=== PATIENT | female | born 1985 | race Caucasian/White ===

== ENCOUNTER 2016-04-07 19:33 | Emergency (ER) | payer OTHER ==
[~2016-04-07] VITALS: Ht 165.1 cm; Wt 72.6 kg
[~2016-04-07 19:33] MED LIST: HYDR-971 PO; NAPR500T PO; NAPR550T PO
[2016-04-07] MEDS ORDERED: METOCLOPRAMIDE HCL 10 MG/2 ML VIAL. IV ONE (20:00)
[2016-04-07] MEDS ORDERED: IV NORMAL SALINE 1000ML BAG 1,000 ML IV ONE (20:00)
[2016-04-07] MEDS ORDERED: DIPHENHYDRAMINE 50 MG/ML VIAL IVP ONE (20:00)
[2016-04-07] MEDS ORDERED: KETOROLAC TROMETHAMINE 30 MG/ML SYRINGE. IV ONE (20:00)
[2016-04-07 20:13] LABS: BASO # 0.1 x10^3/uL (0.0-0.2); BASO % 1 % (0-3); EOS % 5 % (0-3); HEMATOCRIT 31.4 % (36.0-47.0); HEMOGLOBIN 10.3 g/dL (12.0-15.5); LYMPH # 2.8 x10^3/uL (1.0-4.8); LYMPH % 50 % (24-48); MEAN CORPUSCULAR HEMOGLOBIN 26 pg (25-35); MEAN CORPUSCULAR HGB CONC 33 g/dL (31-37); MEAN CORPUSCULAR VOLUME 79 fL (79-100); MONO % 6 % (0-9); NEUT % 39 % (31-73); PLATELET COUNT 209 x10^3/uL (140-400); RED BLOOD COUNT 3.98 x10^6/uL (3.50-5.40); RED CELL DISTRIBUTION WIDTH 15.3 % (11.5-14.5); WHITE BLOOD COUNT 5.6 x10^3/uL (4.0-11.0)
[2016-04-07] MEDS ORDERED: METO10TA81 PO (20:29)
[2016-04-07] MEDS ORDERED: BUTA1CAP29 PO (20:29)
--- NOTE | 2016-04-07 20:29 | PHYS DOC ---
Past Medical History Past Medical History: Bipolar Past Surgical History: , Gastric Bypass, Tonsillectomy Alcohol Use: None Drug Use: None Adult General Chief Complaint Chief Complaint: MULTIPLE COMPLAINTS HPI HPI 31-year-old female presents with multiple complaints. She states she has had [id number] heavy periods with a history of anemia and is concerned about her blood count. She also states she is had a severe headache typical of her previous migraine headaches. She denies any lateralizing neurologic weakness. She denies any fever or neck pain. She states is been ongoing for the last 12 hours. [] Review of Systems Review of Systems Constitutional: Denies fever or chills [] Eyes: Denies change in visual acuity, redness, or eye pain [] HENT: Denies nasal congestion or sore throat [] Respiratory: Denies cough or shortness of breath [] Cardiovascular: No additional information not addressed in HPI [] GI: Denies abdominal pain, nausea, vomiting, bloody stools or diarrhea [] : Denies dysuria or hematuria [] Musculoskeletal: Denies back pain or joint pain [] Integument: Denies rash or skin lesions [] Neurologic: Per history of present illness [] Endocrine: Denies polyuria or polydipsia [] Current Medications Current Medications Current Medications Medications (Trade) Dose Ordered Sig/Yaniv Start Time Stop Time Status Last Admin Dose Admin Diphenhydramine HCl (Benadryl) 25 mg 1X ONCE 04/07/16 20:00 04/07/16 20:01 DC 04/07/16 20:10 25 MG Ketorolac Tromethamine (Toradol) 30 mg 1X ONCE 04/07/16 20:00 04/07/16 20:01 DC 04/07/16 20:10 30 MG Metoclopramide HCl (Reglan) 10 mg 1X ONCE 04/07/16 20:00 04/07/16 20:01 DC 04/07/16 20:11 10 MG Sodium Chloride (Iv Sodium Chloride 0.9% 1000ml Bag) 1,000 ml @ 1,000 mls/hr 1X ONCE 04/07/16 20:00 04/07/16 20:59 04/07/16 20:09 1,000 MLS/HR Allergies Allergies Allergies Coded Allergies Type Severity Reaction Last Updated Verified No Known Drug Allergies 01/23/16 No Physical Exam Physical Exam Constitutional: Well developed, well nourished, no acute distress, non-toxic appearance. [] HENT: Normocephalic, atraumatic, bilateral external ears normal, oropharynx moist, no oral exudates, nose normal. [] Eyes: PERRLA, EOMI, conjunctiva normal, no discharge. [] Neck: Normal range of motion, no tenderness, supple, no stridor. [] Cardiovascular:Heart rate regular rhythm, no murmur [] Lungs & Thorax: Bilateral breath sounds clear to auscultation [] Abdomen: Bowel sounds normal, soft, no tenderness, no masses, no pulsatile masses. [] Skin: Warm, dry, no erythema, no rash. [] Back: No tenderness, no CVA tenderness. [] Extremities: No tenderness, no cyanosis, no clubbing, ROM intact, no edema. [] Neurologic: Alert and oriented X 3, normal motor function, normal sensory function, no focal deficits noted. [] Psychologic: Affect normal, judgement normal, mood normal. [] Current Patient Data Lab Values Laboratory Tests Test 04/07/16 20:00 White Blood Count 5.6x10^3/uL (4.0-11.0) Red Blood Count 3.98x10^6/uL (3.50-5.40) Hemoglobin 10.3g/dL (12.0-15.5) L Hematocrit 31.4% (36.0-47.0) L Mean Corpuscular Volume 79fL (79-100) Mean Corpuscular Hemoglobin 26pg (25-35) Mean Corpuscular Hemoglobin Concent 33g/dL (31-37) Red Cell Distribution Width 15.3% (11.5-14.5) H Platelet Count 209x10^3/uL (140-400) Neutrophils (%) (Auto) 39% (31-73) Lymphocytes (%) (Auto) 50% (24-48) H Monocytes (%) (Auto) 6% (0-9) Eosinophils (%) (Auto) 5% (0-3) H Basophils (%) (Auto) 1% (0-3) Neutrophils # (Auto) 2.2x10^3uL (1.8-7.7) Lymphocytes # (Auto) 2.8x10^3/uL (1.0-4.8) Monocytes # (Auto) 0.3x10^3/uL (0.0-1.1) Eosinophils # (Auto) 0.3x10^3/uL (0.0-0.7) Basophils # (Auto) 0.1x10^3/uL (0.0-0.2) Laboratory Tests 04/07/16 20:00 EKG EKG [] Radiology/Procedures Radiology/Procedures [] Course & Med Decision Making Course & Med Decision Making Pertinent Labs and Imaging studies reviewed. (See chart for details) [ED course: Evaluation reveals a 31-year-old female with migraine type symptoms. She was given IV fluids, Reglan, Toradol and Benadryl with complete resolution of her headache. Her blood count was slightly low at 10 and 30 however not dangerously low. Patient states she feels better. Home.] Dragon Disclaimer Dragon Disclaimer This electronic medical record was generated, in whole or in part, using a voice recognition dictation system. Departure Departure Impression: Primary Impression: Migraine Additional Impression: Dysfunctional uterine bleeding Disposition: HOME, SELF-CARE Condition: STABLE Referrals: EDITH MARLOW MD (PCP) Patient Instructions: Migraine Headache, Uterine Bleeding, Dysfunctional Additional Instructions: Thank you for allowing us to participate in your care today. Followup with your primary care physician in 3 days if your symptoms do not improve. Return to the emergency department you have any new or concerning findings. This should be evaluated by the primary care physician and any necessary consulting services for continued management within a few days after discharge. Return to emergency room if you have any new or concerning symptoms including but not limited to fever, chills, nausea, vomiting, intractable pain, any new rashes, chest pain, shortness of air, uncontrolled bleeding, difficulty breathing, and/or vision loss. You may have been prescribed medication that can change in your level of thinking and ability to operate machinery. These medications include hydrocodone and Ativan. Also, Benadryl has been known to do this as well. Be sure to check with your pharmacist and ask if the medications you've prescribed can affect your level of consciousness. I recommend not operating heavy machinery or driving while on medication such as these. Scripts Metoclopramide Hcl (Reglan)10 Mg Tablet1 Tab PO Q8HRS PRN migraine #30 TAB Prov:JASON NATION DO 04/07/16 Butalb/Acetaminophen/Caffeine (Fioricet 50-300-40 Mg Capsule)1 Each Capsule1 Each PO PRN Q4HRS PRN MIGRAINE HEADACHE #30 CAP Prov:JASON NATION DO 04/07/16 Problem Qualifiers Primary Impression: Migraine Migraine type: unspecified Status migrainosus presence: without status migrainosus Intractability: not intractable Qualified Code: G43.909 - Migraine, unspecified, not intractable, without status migrainosus JASON NATION DO Apr 07, 2016 20:29
[2016-04-07 20:45] VITALS: BP 104/68
[2016-04-07 20:47] LABS: CALCIUM 8.8 mg/dL (8.5-10.1); CREATININE 0.8 mg/dL (0.6-1.0); GFR 83.1; POTASSIUM 3.7 mmol/L (3.5-5.1)
[2016-04-08 04:42] LABS: NEG OBC UR NEG; POS OBC UR POS
== END 2016-04-07 21:10 | disposition home or self-care (01) ==
LOC: ER 19:33
DX: G43.909 Migraine, unspecified, not intractable, without status migrainosus (principal); N93.8 Other specified abnormal uterine and vaginal bleeding
CPT/HCPCS: 36415; 80048; 81025; 85027; 96361; 96374; 96375; 99284; J1200; J1885; J2765; J7030

== ENCOUNTER 2016-05-12 21:23 | Emergency (ER) | payer OTHER ==
[~2016-05-12] VITALS: Ht 165.1 cm; Wt 74.8 kg
[~2016-05-12 21:23] MED LIST changes: +BUTA1CAP29 PO; +METO10TA81 PO
[2016-05-12 21:49] VITALS: BP 100/54
--- NOTE | 2016-05-12 21:54 | PHYS DOC ---
Past Medical History Past Medical History: Anemia, Anxiety, Bipolar, Depression Past Surgical History: , Gastric Bypass, Tonsillectomy Alcohol Use: None Drug Use: None Adult General Chief Complaint Chief Complaint: RIB PAIN [facility] HPI Patient is a 31 year old female with complaint of left anterior chest wall pain after bending over bathtub at approximately 9 AM this morning and feeling a "pop". She states she's had persistent pain since that period time and hurts to take a deep breath in. Patient denies any previous rib fractures were pneumothorax. Of incidental note, patient is been seen in this emergency department once each month for some type of musculoskeletal injury. Review of Systems Review of Systems Constitutional: Denies fever or chills [] Eyes: Denies change in visual acuity, redness, or eye pain [] HENT: Denies nasal congestion or sore throat [] Respiratory: Denies cough or shortness of breath [] Cardiovascular: No additional information not addressed in HPI [] GI: Denies abdominal pain, nausea, vomiting, bloody stools or diarrhea [] : Denies dysuria or hematuria [] Musculoskeletal: Denies back pain or joint pain [] Integument: Denies rash or skin lesions [] Neurologic: Denies headache, focal weakness or sensory changes [] Endocrine: Denies polyuria or polydipsia [] Allergies Allergies Allergies Coded Allergies Type Severity Reaction Last Updated Verified No Known Drug Allergies 01/23/16 No Physical Exam Physical Exam Constitutional: Well developed, well nourished, no acute distress, non-toxic appearance. HENT: Normocephalic, atraumatic, bilateral external ears normal, oropharynx moist, no oral exudates, nose normal. [] Eyes: PERRLA, EOMI, conjunctiva normal, no discharge. [] Neck: Normal range of motion, no tenderness, supple, no stridor. [] Cardiovascular:Heart rate regular rhythm, no murmur [] Lungs & Thorax: Patient shows no evidence respiratory distress or respiratory fatigue. Patient's chest wall is normal in appearance. There is tenderness to palpation to left anterior chest wall at the level of the eighth and ninth ribs. There is no palpable instability or crepitus. There is no paradoxical movement. Patient demonstrates full chest excursion with deep inspiration. Lung sounds are clear to auscultation bilaterally. Abdomen: Bowel sounds normal, soft, no tenderness, no masses, no pulsatile masses. [] Skin: Warm, dry, no erythema, no rash. [] Back: No tenderness, no CVA tenderness. [] Extremities: No tenderness, no cyanosis, no clubbing, ROM intact, no edema. [] Neurologic: Alert and oriented X 3, normal motor function, normal sensory function, no focal deficits noted. [] Psychologic: Affect normal, judgement normal, mood normal. [] Current Patient Data Vital Signs Vital Signs Date Time Temp Pulse Resp B/P Pulse Ox O2 Delivery O2 Flow Rate FiO2 05/12/16 21:49 97.8 74 16 99 Room Air 97.8 EKG EKG [] Radiology/Procedures Radiology/Procedures PA and lateral chest x-ray was performed with adequate technique. There is no evidence of acute thoracic process such as rib fracture or pneumothorax. Course & Med Decision Making Course & Med Decision Making Pertinent Labs and Imaging studies reviewed. (See chart for details) [] Dragon Disclaimer Dragon Disclaimer This electronic medical record was generated, in whole or in part, using a voice recognition dictation system. Departure Departure Impression: Primary Impression: Contusion, chest wall Disposition: HOME, SELF-CARE Condition: GOOD Referrals: EDITH MARLOW MD (PCP) Patient Instructions: Chest Contusion, [id number] Additional Instructions: 1. The x-rays of your chest today show no broken ribs or collapsed lung. 2. Review the discharge instructions for self-care and reasons to return the emergency department. 3. Take the medications prescribed. 4. Contact primary care doctor's office in the morning to schedule follow-up appointment to be seen within the next week. Scripts Hydrocodone/Apap 5-325 (Randolph 5-325 Tablet)1 Each Tablet1 Tab PO PRN Q6HRS PRN BREAKTHROUGH PAIN #10 TAB Prov:YU DOUGLASS 05/12/16 Naproxen Sodium (Anaprox Ds)550 Mg [id number] Mg PO twice a day chest wall pain # 20 Prov:YU DOUGLASS 05/12/16 YU DOUGLASS May 12, 2016 21:54
[2016-05-12] MEDS ORDERED: NAPR550T PO (22:41)
[2016-05-12] MEDS ORDERED: HYDR-971 PO (22:41)
--- NOTE | 2016-05-13 07:18 | RAD ---
Chest, 2 views, 05/12/2016: History: Chest wall pain The heart size and pulmonary vascularity are normal. No pulmonary infiltrates are seen. There is no evidence of pleural fluid. IMPRESSION: No acute cardiopulmonary abnormality is detected.
== END 2016-05-12 22:50 | disposition home or self-care (01) ==
LOC: ER 21:23
DX: S20.212A Contusion of left front wall of thorax, initial encounter (principal); F31.9 Bipolar disorder, unspecified; F41.9 Anxiety disorder, unspecified; Z98.84 Bariatric surgery status; X58.XXXA Exposure to other specified factors, initial encounter; Y93.89 Activity, other specified; Y92.89 Other specified places as the place of occurrence of the external cause; Y99.8 Other external cause status
CPT/HCPCS: 71020; 99284

== ENCOUNTER 2016-07-18 09:55 | Emergency (ER) | payer OTHER ==
[~2016-07-18] VITALS: Ht 165.1 cm; Wt 69.4 kg
[2016-07-18 09:55] VITALS: BP 81/59
--- NOTE | 2016-07-18 10:00 | PHYS DOC ---
Past Medical History Past Medical History: Anemia, Anxiety, Bipolar, Depression, Other Additional Past Medical Histor: CHRONIC STOMACH ULCER Past Surgical History: , Gastric Bypass, Tonsillectomy Alcohol Use: None Drug Use: None Adult General Chief Complaint Chief Complaint: SYNCOPE HPI HPI Patient is a 31 year old female brought in by EMS for evaluation of multiple syncopal episodes that occurred this morning. states that she was trying to go to the bathroom and would fall over and passed out for several minutes at a time. Patient did not want the infant's called however insisted that she kept passing out. And has been having multiple syncopal episodes for the last 6 months and her primary care provider from [facility] is having her go to cardiology and neurology however she has not done so he at this time. Patient says that she is hurting in her head and her neck as she fell forward and hit these areas. Chest abdomen back extremity or unilateral weakness numbness or tingling. He is hypotensive which patient requested has been occurring with the syncopal episodes. I spoke to the in private who wanted this conversation to remain confidential and no lip I would not tell patient this information comes from him. He states that she has been taking as much as 40-50 mg of her Valium twice daily as she is not coping with the son being diagnosed with autism. 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 Patient is in no obvious distress with normal vital signs other than her hypotension. Review of Systems Review of Systems Constitutional: Denies fever or chills [] Eyes: Denies change in visual acuity, redness, or eye pain [] HENT: Denies nasal congestion or sore throat [] Respiratory: Denies cough or shortness of breath [] Cardiovascular: No CP GI: Denies abdominal pain, nausea, vomiting, bloody stools or diarrhea [] : Denies dysuria or hematuria [] Musculoskeletal: Denies back pain or joint pain [] Integument: Denies rash or skin lesions [] Neurologic: + headache. No focal weakness or sensory changes [] Current Medications Current Medications Current Medications Medications (Trade) Dose Ordered Sig/Yaniv Start Time Stop Time Status Last Admin Dose Admin Fentanyl Citrate 75 mcg 75 mcg 1X ONCE 07/18/16 10:15 07/18/16 10:18 DC 07/18/16 11:03 75 MCG Sodium Chloride (Iv Sodium Chloride 0.9% 1000ml Bag) 1,000 ml @ 1,000 mls/hr 1X ONCE 07/18/16 12:00 07/18/16 12:59 DC 07/18/16 10:30 1,000 MLS/HR Allergies Allergies Allergies Coded Allergies Type Severity Reaction Last Updated Verified No Known Drug Allergies 01/23/16 No Physical Exam Physical Exam Constitutional: Well developed, well nourished, no acute distress, non-toxic appearance. [] HENT: Normocephalic, atraumatic, bilateral external ears normal, oropharynx moist, no oral exudates, nose normal. [] Eyes: PERRLA, EOMI, conjunctiva normal, no discharge. [] Neck: Normal range of motion, + midline and paraspinal C spine tenderness, supple, no stridor. [] Cardiovascular:Heart rate regular rhythm, no murmur [] Lungs & Thorax: Bilateral breath sounds clear to auscultation [] Abdomen: Bowel sounds normal, soft, no tenderness, no masses, no pulsatile masses. [] Skin: Warm, dry, no erythema, no rash. [] Back: No tenderness, no CVA tenderness. [] Extremities: No tenderness, no cyanosis, no clubbing, ROM intact, no edema. [] Neurologic: Alert and oriented X 3, normal motor function, normal sensory function, no focal deficits noted. [] Current Patient Data Vital Signs Vital Signs Date Time Temp Pulse Resp B/P Pulse Ox O2 Delivery O2 Flow Rate FiO2 07/18/16 09:55 98.4 76 11 81/59 100 Room Air 98.4 Lab Values Laboratory Tests Test 07/18/16 10:00 07/18/16 10:02 07/18/16 11:00 White Blood Count 5.5x10^3/uL (4.0-11.0) Red Blood Count 4.52x10^6/uL (3.50-5.40) Hemoglobin 11.2g/dL (12.0-15.5) L Hematocrit 34.6% (36.0-47.0) L Mean Corpuscular Volume 77fL (79-100) L Mean Corpuscular Hemoglobin 25pg (25-35) Mean Corpuscular Hemoglobin Concent 32g/dL (31-37) Red Cell Distribution Width 16.9% (11.5-14.5) H Platelet Count 183x10^3/uL (140-400) Neutrophils (%) (Auto) 52% (31-73) Lymphocytes (%) (Auto) 35% (24-48) Monocytes (%) (Auto) 9% (0-9) Eosinophils (%) (Auto) 4% (0-3) H Basophils (%) (Auto) 1% (0-3) Neutrophils # (Auto) 2.9x10^3uL (1.8-7.7) Lymphocytes # (Auto) 1.9x10^3/uL (1.0-4.8) Monocytes # (Auto) 0.5x10^3/uL (0.0-1.1) Eosinophils # (Auto) 0.2x10^3/uL (0.0-0.7) Basophils # (Auto) 0.0x10^3/uL (0.0-0.2) Sodium Level 138mmol/L (136-145) Potassium Level 4.6mmol/L (3.5-5.1) Chloride Level 103mmol/L (98-107) Carbon Dioxide Level 29mmol/L (21-32) Anion Gap 6 (6-14) Blood Urea Nitrogen 15mg/dL (7-20) Creatinine 1.1mg/dL (0.6-1.0) H Estimated GFR (Cockcroft-Gault) 57.6 BUN/Creatinine Ratio 14 (6-20) Glucose Level 68mg/dL (70-99) L Calcium Level 9.2mg/dL (8.5-10.1) Magnesium Level 2.2mg/dL (1.8-2.4) Total Bilirubin 0.2mg/dL (0.2-1.0) Aspartate Amino Transferase (AST) 21U/L (15-37) Alanine Aminotransferase (ALT) 42U/L (14-59) Alkaline Phosphatase 51U/L (46-116) Total Protein 7.3g/dL (6.4-8.2) Albumin 4.0g/dL (3.4-5.0) Albumin/Globulin Ratio 1.2 (1.0-1.7) POC Urine HCG, Qualitative Hcg negative (Negative) Urine Collection Type Void Urine Color Yellow Urine Clarity Clear Urine pH 6.5 Urine Specific Merrill 1.020 Urine Protein Negativemg/dL (NEG-TRACE) Urine Glucose (UA) Negativemg/dL (NEG) Urine Ketones (Stick) Negativemg/dL (NEG) Urine Blood Negative (NEG) Urine Nitrite Negative (NEG) Urine Bilirubin Negative (NEG) Urine Urobilinogen Dipstick 0.2mg/dL (0.2 mg/dL) Urine Leukocyte Esterase Trace (NEG) Urine RBC Rare/HPF (0-2) Urine WBC 1-4/HPF (0-4) Urine Squamous Epithelial Cells Few/LPF Urine Bacteria Few/HPF (0-FEW) Urine Hyaline Casts Few/HPF Urine Mucus Slight/LPF Laboratory Tests 07/18/16 10:00 Laboratory Tests 07/18/16 10:00 EKG EKG Normal sinus rhythm with normal rate and rhythm axis and no ST elevation or depression and normal T waves. Radiology/Procedures Radiology/Procedures CT of the head without contrast, 07/18/2016: History: Headache after a fall The ventricles are within normal limits in size. There is no shift of the midline structures. There is no evidence of acute intracranial hemorrhage or mass effect. IMPRESSION: No acute intracranial abnormality is detected. CT of the cervical spine without contrast, 07/18/2016. Noncontrast scans were obtained with multiplanar reconstructions produced. No fracture or dislocation is identified. The central spinal canal is well-preserved. The visualized paraspinous soft tissues are unremarkable. IMPRESSION: No acute cervical spine abnormality is detected. PQRS Compliance Statement: One or more of the following individualized dose reduction techniques were utilized for this examination: 1. Automated exposure control 2. Adjustment of the mA and/or kV according to patient size 3. Use of iterative reconstruction technique DICTATED and SIGNED BY: АЛЕКСАНДР MACIAS MD DATE: 07/18/16 0265 Course & Med Decision Making Course & Med Decision Making I told patient that it appears that she is taking too many benzodiazepines and she is not taking good care of herself as far as her diet goes. I strongly encouraged her to eat a healthy diet and to limit the benzodiazepines that she takes that she is not coping in a healthy manner with her home situation. This information was told to her with her present and was presented in a manner that it was coming for me and not from him. Patient verbalized understanding of my concerns and she said that she would limit her benzodiazepines and tried to eat a better diet and follow-up with the specialist and her primary care provider within the next week and come back to the ER sooner with any worsening pain fevers neurologic symptoms or general concerns. Patient discharged in stable condition with repeat normal neurologic exam and walked out of the emergency department under her own power. Dragon Disclaimer Dragon Disclaimer This electronic medical record was generated, in whole or in part, using a voice recognition dictation system. Departure Departure Impression: Primary Impression: Syncope and collapse Additional Impressions: Hypotension Anemia Disposition: 01 HOME, SELF-CARE Condition: GOOD Referrals: EDITH MARLOW MD (PCP) Patient Instructions: Syncope Problem Qualifiers Additional Impressions: Hypotension Hypotension type: hypotension due to drug Qualified Code: I95.2 - Hypotension due to drugs WHITNEY THAKKAR DO Jul 18, 2016 10:00
[2016-07-18] MEDS ORDERED: FLUO40CA9 PO (10:09)
[2016-07-18] MEDS ORDERED: VALIUM10 MG PO (10:09)
[2016-07-18] MEDS ORDERED: BUPR150T15 PO (10:09)
[2016-07-18] MEDS ORDERED: LURA80TA PO (10:09)
[2016-07-18] MEDS ORDERED: GABA800T PO (10:10)
[2016-07-18] MEDS ORDERED: fentaNYL PF VIAL 100 MCG/2 ML VIAL IV ONE (10:15)
--- NOTE | 2016-07-18 10:22 | EKG ---
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
[2016-07-18 10:23] LABS: BASO % 1 % (0-3); EOS % 4 % (0-3); HEMATOCRIT 34.6 % (36.0-47.0); HEMOGLOBIN 11.2 g/dL (12.0-15.5); LYMPH # 1.9 x10^3/uL (1.0-4.8); LYMPH % 35 % (24-48); MEAN CORPUSCULAR HEMOGLOBIN 25 pg (25-35); MEAN CORPUSCULAR HGB CONC 32 g/dL (31-37); MEAN CORPUSCULAR VOLUME 77 fL (79-100); MONO % 9 % (0-9); NEUT % 52 % (31-73); PLATELET COUNT 183 x10^3/uL (140-400); RED BLOOD COUNT 4.52 x10^6/uL (3.50-5.40); RED CELL DISTRIBUTION WIDTH 16.9 % (11.5-14.5); WHITE BLOOD COUNT 5.5 x10^3/uL (4.0-11.0)
[2016-07-18 10:48] LABS: ALBUMIN/GLOBULIN RATIO 1.2 (1.0-1.7); CALCIUM 9.2 mg/dL (8.5-10.1); CREATININE 1.1 mg/dL (0.6-1.0); GFR 57.6; MAGNESIUM 2.2 mg/dL (1.8-2.4); POTASSIUM 4.6 mmol/L (3.5-5.1); TOTAL BILIRUBIN 0.2 mg/dL (0.2-1.0); TOTAL PROTEIN 7.3 g/dL (6.4-8.2)
[2016-07-18 11:12] LABS: BILIRUBIN,URINE NEGATIVE (NEG); GLUCOSE,URINE NEGATIVE (NEG); NITRITE,URINE NEGATIVE (NEG); PH,URINE 6.5; PROTEIN,URINE NEGATIVE (NEG-TRACE); UROBILINOGEN,URINE 0.2 mg/dL (0.2 mg/dL)
[2016-07-18 11:32] LABS: BACTERIA,URINE FEW /HPF (0-FEW); RBC,URINE RARE /HPF (0-2); SQUAMOUS EPITHELIAL CELL,UR FEW /LPF
[2016-07-18] MEDS ORDERED: IV NORMAL SALINE 1000ML BAG 1,000 ML IV ONE (12:00)
--- NOTE | 2016-07-18 12:06 | RAD ---
CT of the head without contrast, 07/18/2016: History: Headache after a fall The ventricles are within normal limits in size. There is no shift of the midline structures. There is no evidence of acute intracranial hemorrhage or mass effect. IMPRESSION: No acute intracranial abnormality is detected. CT of the cervical spine without contrast, 07/18/2016. Noncontrast scans were obtained with multiplanar reconstructions produced. No fracture or dislocation is identified. The central spinal canal is well-preserved. The visualized paraspinous soft tissues are unremarkable. IMPRESSION: No acute cervical spine abnormality is detected. PQRS Compliance Statement: One or more of the following individualized dose reduction techniques were utilized for this examination: 1. Automated exposure control 2. Adjustment of the mA and/or kV according to patient size 3. Use of iterative reconstruction technique
== END 2016-07-18 12:33 | disposition home or self-care (01) ==
LOC: ER 09:55
DX: R55 Syncope and collapse (principal); I95.2 Hypotension due to drugs; T42.4X5A Adverse effect of benzodiazepines, initial encounter; D64.9 Anemia, unspecified; M54.2 Cervicalgia; R51 Headache; F31.9 Bipolar disorder, unspecified; F41.9 Anxiety disorder, unspecified; Z98.84 Bariatric surgery status; W01.198A Fall on same level from slipping, tripping and stumbling with subsequent striking against other object, initial encounter; Y92.89 Other specified places as the place of occurrence of the external cause; Y93.89 Activity, other specified; Y99.8 Other external cause status
CPT/HCPCS: 36415; 70450; 72125; 80053; 81001; 81025; 83735; 85027; 87086; 93005; 96361; 96374; 99285; J3010; J7030

== ENCOUNTER 2017-01-07 13:10 | Emergency (ER) | payer OTHER ==
[~2017-01-07] VITALS: Ht 165.1 cm; Wt 74.8 kg
[~2017-01-07 13:10] MED LIST changes: +BUPR150T15 PO; +FLUO40CA9 PO; +GABA800T PO; +LURA80TA PO; +NAPR-682 PO; -NAPR550T PO; +VALIUM10 MG PO
[2017-01-07] MEDS ORDERED: IV NORMAL SALINE 1000ML BAG 1,000 ML IV SCH (14:04)
--- NOTE | 2017-01-07 14:09 | PHYS DOC ---
Past Medical History Past Medical History: Anemia, Anxiety, Bipolar, Depression, Other Additional Past Medical Histor: CHRONIC STOMACH ULCER Past Surgical History: , Gastric Bypass, Tonsillectomy Alcohol Use: None Drug Use: None Adult General Chief Complaint Chief Complaint: ABDOMINAL PAIN HPI HPI Patient is a 31 year old female who presents with epigastric pain this been going on for several weeks to a couple months. She also has nausea vomiting and constipation. She had a lap band performing 2010 and then revision into a sleeve in 2012. She sees Dr. Rhodes with GI at [facility]. She also sees Dr. Machuca with bariatric surgery. She's been on Protonix and sulfa Carafate for the last 2-3 months and has had some improvement and over the last several weeks has been having more epigastric pain. She states a week ago she started having vomiting which she is vomiting at least once to twice everyday nonbloody nonbilious vomiting. She's been having hard stools and fighting constipation. She complains of intermittent epigastric pain. She states her Tylenol, Excedrin, Pepto-Bismol and addition to her Protonix and sulfa Carafate is not controlling the discomfort anymore. She denies any chest pain shortness of breath. Review of Systems Review of Systems Constitutional: Denies fever or chills [] Eyes: Denies change in visual acuity, redness, or eye pain [] HENT: Denies nasal congestion or sore throat [] Respiratory: Denies cough or shortness of breath [] Cardiovascular: No additional information not addressed in HPI [] GI: Positive for abdominal pain, nausea, vomiting, denies any bloody stools or diarrhea [] : Denies dysuria or hematuria [] Musculoskeletal: Denies back pain or joint pain [] Integument: Denies rash or skin lesions [] Neurologic: Denies headache, focal weakness or sensory changes [] Endocrine: Denies polyuria or polydipsia [] Current Medications Current Medications Current Medications Medications (Trade) Dose Ordered Sig/Yaniv Start Time Stop Time Status Last Admin Dose Admin Info (Do NOT chart on this entry -- for MONITORING) 1 each PRN DAILY PRN 01/07/17 14:30 01/09/17 14:29 Iohexol (Omnipaque 240 Mg/ml) 50 ml 1X ONCE 01/07/17 14:30 10/17/17 14:31 DC 01/07/17 15:07 50 ML Iohexol (Omnipaque 300 Mg/ml) 75 ml 1X ONCE 01/07/17 14:30 01/07/17 14:31 DC 01/07/17 15:07 75 ML Morphine Sulfate 4 mg PRN Q15MIN PRN 01/07/17 14:15 01/08/17 14:14 01/07/17 16:00 4 MG Multi-Ingredient Mouthwash/Gargle (Gi Cocktail Single Dose) 15 ml 1X ONCE 01/07/17 17:15 01/07/17 17:16 DC 01/07/17 17:07 15 ML Ondansetron HCl (Zofran) 4 mg 1X ONCE 01/07/17 14:15 01/07/17 14:16 DC 01/07/17 14:26 4 MG Sodium Chloride 1,000 ml @ 1,000 mls/hr Q1H 01/07/17 14:04 01/07/17 15:03 DC 01/07/17 14:25 1,000 MLS/HR Allergies Allergies Allergies Coded Allergies Type Severity Reaction Last Updated Verified No Known Drug Allergies 01/23/16 No Physical Exam Physical Exam Constitutional: Well developed, well nourished, no acute distress, non-toxic appearance. [] HENT: Normocephalic, atraumatic, bilateral external ears normal, oropharynx moist, no oral exudates, nose normal. [] Eyes: PERRLA, EOMI, conjunctiva normal, no discharge. [] Neck: Normal range of motion, no tenderness, supple, no stridor. [] Cardiovascular:Heart rate regular rhythm, no murmur [] Lungs & Thorax: Bilateral breath sounds clear to auscultation [] Abdomen: Bowel sounds normal, soft, mild tender palpation epigastric area, no rebound or guarding, no masses, no pulsatile masses. [] Skin: Warm, dry, no erythema, no rash. [] Back: No tenderness, no CVA tenderness. [] Extremities: No tenderness, no cyanosis, no clubbing, ROM intact, no edema. [] Neurologic: Alert and oriented X 3, normal motor function, normal sensory function, no focal deficits noted. [] Psychologic: Affect normal, judgement normal, mood normal. [] Current Patient Data Vital Signs Vital Signs Date Time Temp Pulse Resp B/P (MAP) Pulse Ox O2 Delivery O2 Flow Rate FiO2 01/07/17 15:47 70 16 118/67 (84) 99 Room Air 01/07/17 13:52 98.8 98.8 Lab Values Laboratory Tests Test 01/07/17 13:38 01/07/17 13:44 01/07/17 14:17 Urine Collection Type Unknown Urine Color Yellow Urine Clarity Clear Urine pH 6.0 Urine Specific [place] 1.015 Urine Protein Negative mg/dL (NEG-TRACE) Urine Glucose (UA) Negative mg/dL (NEG) Urine Ketones (Stick) Negative mg/dL (NEG) Urine Blood Negative (NEG) Urine Nitrite Negative (NEG) Urine Bilirubin Negative (NEG) Urine Urobilinogen Dipstick 0.2 mg/dL (0.2 mg/dL) Urine Leukocyte Esterase Negative (NEG) Urine RBC 0 /HPF (0-2) Urine WBC Rare /HPF (0-4) Urine Squamous Epithelial Cells Few /LPF Urine Bacteria Few /HPF (0-FEW) Urine Mucus Mod /LPF Urine Opiates Screen Neg (NEG) Urine Methadone Screen Neg (NEG) Urine Barbiturates Neg (NEG) Urine Phencyclidine Screen Neg (NEG) Urine Amphetamine/Methamphetamine Neg (NEG) Urine Benzodiazepines Screen Pos (NEG) Urine Cocaine Screen Neg (NEG) Urine Cannabinoids Screen Neg (NEG) Urine Ethyl Alcohol Neg (NEG) POC Urine HCG, Qualitative Hcg negative (Negative) White Blood Count 6.7 x10^3/uL (4.0-11.0) Red Blood Count 4.26 x10^6/uL (3.50-5.40) Hemoglobin 12.2 g/dL (12.0-15.5) Hematocrit 36.9 % (36.0-47.0) Mean Corpuscular Volume 87 fL (79-100) Mean Corpuscular Hemoglobin 29 pg (25-35) Mean Corpuscular Hemoglobin Concent 33 g/dL (31-37) Red Cell Distribution Width 12.9 % (11.5-14.5) Platelet Count 210 x10^3/uL (140-400) Neutrophils (%) (Auto) 59 % (31-73) Lymphocytes (%) (Auto) 28 % (24-48) Monocytes (%) (Auto) 7 % (0-9) Eosinophils (%) (Auto) 6 % (0-3) H Basophils (%) (Auto) 1 % (0-3) Neutrophils # (Auto) 3.9 x10^3uL (1.8-7.7) Lymphocytes # (Auto) 1.8 x10^3/uL (1.0-4.8) Monocytes # (Auto) 0.5 x10^3/uL (0.0-1.1) Eosinophils # (Auto) 0.4 x10^3/uL (0.0-0.7) Basophils # (Auto) 0.0 x10^3/uL (0.0-0.2) Prothrombin Time 14.4 SEC (11.7-14.0) H Prothrombin Time INR 1.2 (0.8-1.1) H PTT 35 SEC (24-38) Sodium Level 144 mmol/L (136-145) Potassium Level 3.9 mmol/L (3.5-5.1) Chloride Level 105 mmol/L (98-107) Carbon Dioxide Level 28 mmol/L (21-32) Anion Gap 11 (6-14) Blood Urea Nitrogen 11 mg/dL (7-20) Creatinine 0.8 mg/dL (0.6-1.0) Estimated GFR (Cockcroft-Gault) 83.1 Glucose Level 72 mg/dL (70-99) Calcium Level 9.3 mg/dL (8.5-10.1) Total Bilirubin 0.2 mg/dL (0.2-1.0) Direct Bilirubin < 0.1 mg/dL (0.0-0.2) Aspartate Amino Transferase (AST) 15 U/L (15-37) Alanine Aminotransferase (ALT) 23 U/L (14-59) Alkaline Phosphatase 54 U/L (46-116) Creatine Kinase 71 U/L (26-192) Creatine Kinase MB (Mass) 0.5 ng/mL (0.0-3.6) Creatine Kinase MB Relative Index 0.7 % (0-4) Troponin I Quantitative < 0.017 ng/mL (0.000-0.055) Total Protein 6.8 g/dL (6.4-8.2) Albumin 4.0 g/dL (3.4-5.0) Lipase 238 U/L (73-393) Laboratory Tests 01/07/17 14:17 Laboratory Tests 01/07/17 14:17 EKG EKG EKG shows sinus rhythm [address] elevations or concerning T-wave inversions, normal axis, QTC 412 ms, as interpreted by me. Radiology/Procedures Radiology/Procedures [facility] [address] [place] [address] IMAGING REPORT Signed PATIENT: ROLAND HWANG ACCOUNT: [id number] : 1985 LOCATION: ER AGE: 31 SEX: F EXAM STATUS: REG ER ORD. PHYSICIAN: TIMMY ALEGRE MD REASON: epigastric pain PROCEDURE: CT ABD PELV W/ORAL&IV CONTRAST Indication epigastric pain for 3 weeks. Axial images through the abdomen and pelvis were obtained. Both oral and IV contrast were administered. Approximately 75 cc of Omnipaque 300 was administered intravenously. No prior imaging of the abdomen or pelvis is available. There is a small hiatus hernia. The lung bases are clear. The liver and spleen appear unremarkable. The gallbladder is grossly normal. No adrenal or renal pathology is seen. The pancreas appears unremarkable. No acute finding is seen in the abdomen. In the pelvis no acute finding is seen. IMPRESSION: No acute finding seen in the abdomen or pelvis. There is a small hiatus hernia. PQRS Compliance Statement: One or more of the following individualized dose reduction techniques were utilized for this examination: 1. Automated exposure control 2. Adjustment of the mA and/or kV according to patient size 3. Use of iterative reconstruction technique DICTATED and SIGNED BY: JO ANN COKER MD DATE: 01/07/171634 CC: TIMMY ALEGRE MD; TIFFANIE HENSON APRN ~ Impressions: Abdominal pain Course & Med Decision Making Course & Med Decision Making Pertinent Labs and Imaging studies reviewed. (See chart for details) Labs, vitals, physical exam non-concerning in addition to CT of her abdomen pelvis with IV and oral contrast. GI cocktail made her discomfort slightly better. This is same pain she's had for months for not concerned is cardiac or any other abnormalities associated with this. We discussed non-spicy foods, Maalox, follow-up with GI and bariatric surgery. Return precautions given. She is agreeable to the plan and discharged in stable condition at this time. Dragon Disclaimer Dragon Disclaimer This electronic medical record was generated, in whole or in part, using a voice recognition dictation system. Departure Departure Impression: Primary Impression: Abdominal pain Disposition: HOME, SELF-CARE Condition: STABLE Referrals: TIFFANIE HENSON APRN (PCP) Patient Instructions: Abdominal Pain Additional Instructions: You were seen today for your epigastric pain/stomach ulcers. You felt better with a dose of GI cocktail. Your labs and CT scan did not show any acute abnormality's. Your being discharged home. You can try Maalox to see if this will help to continue taking other medicines. You will need to follow back up with her GI physician and bariatric surgeon. Return to the ER for severe pain, uncontrolled nausea vomiting, or other concerns. Problem Qualifiers Primary Impression: Abdominal pain Abdominal location: epigastric Qualified Codes: R10.13 - Epigastric pain TIMMY ALEGRE MD Jan 07, 2017 14:09
[2017-01-07] MEDS ORDERED: ONDANSETRON PF 4 MG/2 ML VIAL. IV ONE (14:15)
[2017-01-07 14:16] LABS: BILIRUBIN,URINE NEGATIVE (NEG); GLUCOSE,URINE NEGATIVE (NEG); NITRITE,URINE NEGATIVE (NEG); PROTEIN,URINE NEGATIVE (NEG-TRACE); UROBILINOGEN,URINE 0.2 mg/dL (0.2 mg/dL)
[2017-01-07 14:23] LABS: BARBITURATES NEG (NEG); BENZODIAZEPINES POS (NEG); CANNABINOIDS NEG (NEG); COCAINE NEG (NEG); METHADONE NEG (NEG); OPIATES NEG (NEG); PHENCYCLIDINE NEG (NEG)
[2017-01-07 14:26] LABS: BASO % 1 % (0-3); EOS % 6 % (0-3); HEMATOCRIT 36.9 % (36.0-47.0); HEMOGLOBIN 12.2 g/dL (12.0-15.5); LYMPH # 1.8 x10^3/uL (1.0-4.8); LYMPH % 28 % (24-48); MEAN CORPUSCULAR HEMOGLOBIN 29 pg (25-35); MEAN CORPUSCULAR HGB CONC 33 g/dL (31-37); MEAN CORPUSCULAR VOLUME 87 fL (79-100); MONO % 7 % (0-9); NEUT % 59 % (31-73); PLATELET COUNT 210 x10^3/uL (140-400); RED BLOOD COUNT 4.26 x10^6/uL (3.50-5.40); RED CELL DISTRIBUTION WIDTH 12.9 % (11.5-14.5); WHITE BLOOD COUNT 6.7 x10^3/uL (4.0-11.0)
[2017-01-07] MEDS: MORPHINE SULFATE 4 MG/ML DISP.SYRIN. IV/SQ PRN ×2 (14:26→16:00)
[2017-01-07 14:29] LABS: BACTERIA,URINE FEW /HPF (0-FEW); RBC,URINE 0 /HPF (0-2); SQUAMOUS EPITHELIAL CELL,UR FEW /LPF; WBC,URINE RARE /HPF (0-4)
[2017-01-07] MEDS ORDERED: IOHEXOL 240 MG/ML 50ML VIAL. PO ONE (14:30)
[2017-01-07] MEDS ORDERED: IOHEXOL 300 MG/ML 75 ML VIAL IV ONE (14:30)
[2017-01-07] MEDS ORDERED: CONTRAST GIVEN MC PRN (14:30)
[2017-01-07 14:36] LABS: INR 1.2 (0.8-1.1); PROTHROMBIN TIME PATIENT 14.4 SEC (11.7-14.0)
[2017-01-07 14:44] LABS: ANION GAP 11 (6-14); BLOOD UREA NITROGEN 11 mg/dL (7-20); CALCIUM 9.3 mg/dL (8.5-10.1); CARBON DIOXIDE 28 mmol/L (21-32); CHLORIDE 105 mmol/L (98-107); CREATININE 0.8 mg/dL (0.6-1.0); GFR 83.1; GLUCOSE 72 mg/dL (70-99); POTASSIUM 3.9 mmol/L (3.5-5.1); SODIUM 144 mmol/L (136-145)
[2017-01-07 14:47] LABS: ALK PHOS 54 U/L (46-116); ALT (SGPT) 23 U/L (14-59); AST (SGOT) 15 U/L (15-37); DIRECT BILIRUBIN < 0.1 mg/dL (0.0-0.2); TOTAL BILIRUBIN 0.2 mg/dL (0.2-1.0); TOTAL PROTEIN 6.8 g/dL (6.4-8.2)
[2017-01-07 14:55] LABS: CKMB MASS 0.5 ng/mL (0.0-3.6)
--- NOTE | 2017-01-07 16:19 | EKG ---
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
--- NOTE | 2017-01-07 16:44 | RAD ---
Indication epigastric pain for 3 weeks. Axial images through the abdomen and pelvis were obtained. Both oral and IV contrast were administered. Approximately 75 cc of Omnipaque 300 was administered intravenously. No prior imaging of the abdomen or pelvis is available. There is a small hiatus hernia. The lung bases are clear. The liver and spleen appear unremarkable. The gallbladder is grossly normal. No adrenal or renal pathology is seen. The pancreas appears unremarkable. No acute finding is seen in the abdomen. In the pelvis no acute finding is seen. IMPRESSION: No acute finding seen in the abdomen or pelvis. There is a small hiatus hernia. PQRS Compliance Statement: One or more of the following individualized dose reduction techniques were utilized for this examination: 1. Automated exposure control 2. Adjustment of the mA and/or kV according to patient size 3. Use of iterative reconstruction technique
[2017-01-07] MEDS ORDERED: LIDO:MAALOX:DONNATAL 1:1:1 15 ML SINGLE DOSE SWSW ONE (17:15)
[2017-01-07 17:30] VITALS: BP 109/57
== END 2017-01-07 17:45 | disposition home or self-care (01) ==
LOC: ER 13:10
DX: R10.13 Epigastric pain (principal); R11.2 Nausea with vomiting, unspecified; F41.9 Anxiety disorder, unspecified; F31.9 Bipolar disorder, unspecified; Z87.19 Personal history of other diseases of the digestive system; Z98.84 Bariatric surgery status
CPT/HCPCS: 36415; 74177; 80048; 80076; 80307; 81001; 81025; 82553; 83690; 84484; 85025; 85610; 85730; 93005; 96361; 96374; 96375; 96376; 99285; J2270; J2405; J7030; Q9966; Q9967; G0479

== ENCOUNTER 2019-03-20 18:11 | Emergency (ER) | payer OTHER ==
[~2019-03-20] VITALS: Ht 165.1 cm; Wt 59.9 kg
[2019-03-20 18:11] VITALS: BP 112/64
[~2019-03-20 18:11] MED LIST changes: +HYDR-3164 PO; -HYDR-971 PO; +NAPR-683 PO; -NAPR500T PO
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
[2019-03-20 18:38] LABS: BASO % 1 % (0-3); EOS # 0.3 x10^3/uL (0.0-0.7); EOS % 6 % (0-3); HEMATOCRIT 36.2 % (36.0-47.0); HEMOGLOBIN 11.9 g/dL (12.0-15.5); LYMPH # 2.3 x10^3/uL (1.0-4.8); LYMPH % 44 % (24-48); MEAN CORPUSCULAR HEMOGLOBIN 29 pg (25-35); MEAN CORPUSCULAR HGB CONC 33 g/dL (31-37); MEAN CORPUSCULAR VOLUME 90 fL (79-100); MONO # 0.3 x10^3/uL (0.0-1.1); MONO % 6 % (0-9); NEUT # 2.3 x10^3/uL (1.8-7.7); NEUT % 44 % (31-73); PLATELET COUNT 146 x10^3/uL (140-400); RED BLOOD COUNT 4.04 x10^6/uL (3.50-5.40); RED CELL DISTRIBUTION WIDTH 13.3 % (11.5-14.5); WHITE BLOOD COUNT 5.2 x10^3/uL (4.0-11.0)
[2019-03-20 18:45] LABS: CALCIUM 8.7 mg/dL (8.5-10.1); CREATININE 0.8 mg/dL (0.6-1.0); GFR 81.6
[2019-03-20] MEDS ORDERED: IOHEXOL 300 MG/ML 100ML VIAL. IV ONE (18:45)
[2019-03-20] MEDS ORDERED: ONDANSETRON PF 4 MG/2 ML VIAL. IV ONE (18:45)
[2019-03-20] MEDS ORDERED: CONTRAST GIVEN. MC PRN (18:45)
[2019-03-20] MEDS ORDERED: MORPHINE SULFATE 4 MG/ML VIAL. IV ONE (18:45)
[2019-03-20 18:51] LABS: ALBUMIN 3.9 g/dL (3.4-5.0); ALBUMIN/GLOBULIN RATIO 1.3 (1.0-1.7); TOTAL BILIRUBIN 0.3 mg/dL (0.2-1.0)
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
[2019-03-20] MEDS ORDERED: CYCL5TAB PO (20:12)
[2019-03-20] MEDS ORDERED: TRAM50TA PO (20:12)
== END 2019-03-20 20:34 | disposition home or self-care (01) ==
LOC: ER 18:11
DX: S00.93XA Contusion of unspecified part of head, initial encounter (principal); M54.6 Pain in thoracic spine; R55 Syncope and collapse; M54.2 Cervicalgia; R10.9 Unspecified abdominal pain; R51 Headache; R10.2 Pelvic and perineal pain; F41.9 Anxiety disorder, unspecified; F32.9 Major depressive disorder, single episode, unspecified; K25.7 Chronic gastric ulcer without hemorrhage or perforation; Z90.89 Acquired absence of other organs; Z98.890 Other specified postprocedural states; V87.7XXA Person injured in collision between other specified motor vehicles (traffic), initial encounter; Y93.89 Activity, other specified; Y92.89 Other specified places as the place of occurrence of the external cause; Y99.8 Other external cause status
CPT/HCPCS: 36415; 70450; 71260; 72125; 74177; 80053; 85025; 96374; 96375; 99285; J2270; J2405; Q9967

== ENCOUNTER 2019-03-24 18:52 | Emergency (ER) | payer OTHER ==
[~2019-03-24] VITALS: Ht 165.1 cm; Wt 59.9 kg
[~2019-03-24 18:52] MED LIST changes: +CYCL5TAB PO; +TRAM50TA PO
[2019-03-24 19:10] VITALS: BP 112/73
[2019-03-24] MEDS ORDERED: KETOROLAC 30 MG/ML VIAL. IM ONE (19:30)
[2019-03-24] MEDS ORDERED: predniSONE 10 MG TABLET PO ONE (19:30)
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
[2019-03-24] MEDS ORDERED: HYDR-3164 PO (20:21)
[2019-03-24] MEDS ORDERED: METH-38 PO (20:21)
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
== END 2019-03-24 20:26 | disposition home or self-care (01) ==
LOC: ER 18:52
DX: S39.012A Strain of muscle, fascia and tendon of lower back, initial encounter (principal); F41.9 Anxiety disorder, unspecified; F32.9 Major depressive disorder, single episode, unspecified; K25.7 Chronic gastric ulcer without hemorrhage or perforation; Z90.89 Acquired absence of other organs; Z98.890 Other specified postprocedural states; Z86.2 Personal history of diseases of the blood and blood-forming organs and certain disorders involving the immune mechanism; Z79.899 Other long term (current) drug therapy; V89.2XXA Person injured in unspecified motor-vehicle accident, traffic, initial encounter; Y93.89 Activity, other specified; Y92.89 Other specified places as the place of occurrence of the external cause; Y99.8 Other external cause status
CPT/HCPCS: 72100; 96372; 99284; J1885; J7512

== ENCOUNTER 2019-05-25 18:28 | Emergency (ER) | payer OTHER ==
[~2019-05-25] VITALS: Ht 165.1 cm; Wt 59.0 kg
[~2019-05-25 18:28] MED LIST changes: +METH-38 PO
--- NOTE | 2019-05-25 20:44 | PHYS DOC ---
Past Medical History Past Medical History: Anemia, Anxiety, Bipolar, Depression, Other Additional Past Medical Histor: CHRONIC STOMACH ULCER Past Surgical History: , Gastric Bypass, Tonsillectomy Additional Past Surgical Histo: PEG TUBE REMOVAL Smoking Status: Current Every Day Smoker Alcohol Use: None Drug Use: None Adult General Chief Complaint Chief Complaint: ABDOMINAL PAIN HPI HPI Patient is a 34 year old female who presents with left sharp stabbing rib pain is worsened takes a deep breath or with movement. States she is also shortness of air. States yesterday at [facility] she did a abdomen pelvis CT and it was negative for any findings. She states in the past she's had gastric ulcers of the perforation and Surgery. Has a has a history of depression, gastric bypass, every day smoker, control use. She rates her pain a 7 out of 10. She states she's been calling her doctors all day and they tell her to just take Tylenol. Review of Systems Review of Systems Respiratory: Denies cough. + shortness of breath, pain with breathing. [] Cardiovascular: Left ribs pain All other systems were reviewed and found to be within normal limits, except as documented in this note. Current Medications Current Medications Current Medications Medications (Trade) Dose Ordered Sig/Yaniv Start Time Stop Time Status Last Admin Dose Admin Fentanyl Citrate (Fentanyl 2ml Vial) 50 mcg 1X ONCE 05/25/19 22:00 05/25/19 22:01 Cancel Morphine Sulfate (Morphine Sulfate) 2 mg 1X ONCE 05/25/19 22:30 05/25/19 22:31 DC 05/25/19 22:19 2 MG Ondansetron HCl (Zofran) 4 mg 1X ONCE 05/25/19 22:00 05/25/19 22:01 DC 05/25/19 21:34 4 MG Allergies Allergies Allergies Coded Allergies Type Severity Reaction Last Updated Verified No Known Drug Allergies 01/23/16 No Physical Exam Physical Exam Constitutional: Well developed, well nourished, no acute distress, non-toxic appearance. [] HENT: Normocephalic, atraumatic, bilateral external ears normal, oropharynx moist, no oral exudates, nose normal. [] Eyes: PERRLA, EOMI, conjunctiva normal, no discharge. [] Neck: Normal range of motion, no tenderness, supple, no stridor. [] Cardiovascular:Heart rate regular rhythm, no murmur. Tenderness with palpation over left ribs.[] Lungs & Thorax: Bilateral breath sounds clear to auscultation [] Abdomen: Bowel sounds normal, soft, Left upper abdomen tenderness, no masses, no pulsatile masses. [] Skin: Warm, dry, no erythema, no rash. [] Back: No tenderness, no CVA tenderness. [] Extremities: No tenderness, no cyanosis, no clubbing, ROM intact, no edema. [] Neurologic: Alert and oriented X 3, normal motor function, normal sensory function, no focal deficits noted. [] Psychologic: Affect normal, judgement normal, mood normal. [] Current Patient Data Vital Signs Vital Signs Date Time Temp Pulse Resp B/P (MAP) Pulse Ox O2 Delivery O2 Flow Rate FiO2 05/25/19 22:19 16 98 Room Air 05/25/19 22:09 63 106/66 (79) 05/25/19 20:10 98.4 98.4 Lab Values Laboratory Tests Test 05/25/19 20:10 05/25/19 20:41 05/25/19 21:05 05/25/19 21:15 Urine Collection Type Void Urine Color Peggy Urine Clarity Cloudy Urine pH 5.5 Urine Specific [place] >=1.030 Urine Protein 30 mg/dL (NEG-TRACE) Urine Glucose (UA) Negative mg/dL (NEG) Urine Ketones (Stick) Negative mg/dL (NEG) Urine Blood Large (NEG) Urine Nitrite Negative (NEG) Urine Bilirubin Negative (NEG) Urine Urobilinogen Dipstick 1.0 mg/dL (0.2 mg/dL) Urine Leukocyte Esterase Small (NEG) Urine RBC Tntc /HPF (0-2) Urine WBC 5-10 /HPF (0-4) Urine Squamous Epithelial Cells Many /LPF Urine Bacteria Many /HPF (0-FEW) Urine Opiates Screen Pos (NEG) Urine Methadone Screen Neg (NEG) Urine Barbiturates Neg (NEG) Urine Phencyclidine Screen Neg (NEG) Urine Amphetamine/Methamphetamine Neg (NEG) Urine Benzodiazepines Screen Pos (NEG) Urine Cocaine Screen Neg (NEG) Urine Cannabinoids Screen Neg (NEG) Urine Ethyl Alcohol Neg (NEG) POC Urine HCG, Qualitative Hcg negative (Negative) White Blood Count 5.8 x10^3/uL (4.0-11.0) Red Blood Count 4.47 x10^6/uL (3.50-5.40) Hemoglobin 13.3 g/dL (12.0-15.5) Hematocrit 40.0 % (36.0-47.0) Mean Corpuscular Volume 90 fL (79-100) Mean Corpuscular Hemoglobin 30 pg (25-35) Mean Corpuscular Hemoglobin Concent 33 g/dL (31-37) Red Cell Distribution Width 13.3 % (11.5-14.5) Platelet Count 186 x10^3/uL (140-400) Neutrophils (%) (Auto) 50 % (31-73) Lymphocytes (%) (Auto) 39 % (24-48) Monocytes (%) (Auto) 6 % (0-9) Eosinophils (%) (Auto) 5 % (0-3) H Basophils (%) (Auto) 1 % (0-3) Neutrophils # (Auto) 2.9 x10^3/uL (1.8-7.7) Lymphocytes # (Auto) 2.3 x10^3/uL (1.0-4.8) Monocytes # (Auto) 0.3 x10^3/uL (0.0-1.1) Eosinophils # (Auto) 0.3 x10^3/uL (0.0-0.7) Basophils # (Auto) 0.0 x10^3/uL (0.0-0.2) Prothrombin Time 14.9 SEC (11.7-14.0) H Prothrombin Time INR 1.2 (0.8-1.1) H D-Dimer (Giovana) < 0.27 ug/mlFEU Sodium Level 142 mmol/L (136-145) Potassium Level 3.6 mmol/L (3.5-5.1) Chloride Level 105 mmol/L (98-107) Carbon Dioxide Level 30 mmol/L (21-32) Anion Gap 7 (6-14) Blood Urea Nitrogen 9 mg/dL (7-20) Creatinine 0.7 mg/dL (0.6-1.0) Estimated GFR (Cockcroft-Gault) 95.2 BUN/Creatinine Ratio 13 (6-20) Glucose Level 80 mg/dL (70-99) Calcium Level 9.2 mg/dL (8.5-10.1) Total Bilirubin 0.3 mg/dL (0.2-1.0) Aspartate Amino Transferase (AST) 20 U/L (15-37) Alanine Aminotransferase (ALT) 27 U/L (14-59) Alkaline Phosphatase 69 U/L (46-116) Troponin I Quantitative < 0.017 ng/mL (0.000-0.055) Total Protein 7.7 g/dL (6.4-8.2) Albumin 4.6 g/dL (3.4-5.0) Albumin/Globulin Ratio 1.5 (1.0-1.7) Salicylates Level 7.7 mg/dL (2.8-20.0) Salicylate Last Dose Date Unk Salicylate Last Dose Time Unk Acetaminophen Level < 2 mcg/ml (10-30) L Acetaminophen Last Dose Date Unk Acetaminophen Last Dose Time Unk Ethyl Alcohol Level < 10 mg/dL (0-10) Lipase 190 U/L (73-393) Laboratory Tests 05/25/19 21:05 Laboratory Tests 05/25/19 21:05 EKG EKG SINUS RHYTHM AND NO STEMI[] Interpretation Time: [address] OMALLEY Radiology/Procedures Radiology/Procedures [] Impressions: [facility] [address] [place], [place] [id number] IMAGING REPORT Signed PATIENT: ROLAND HWANG ACCOUNT: [id number] : 1985 LOCATION: ER AGE: 34 SEX: F EXAM STATUS: REG ER ORD. PHYSICIAN: ZENAIDA CUNNINGHAM APRN REASON: Left rib pain PROCEDURE: CHEST PA & LATERAL Exam: Chest 2 views INDICATION: Left rib pain TECHNIQUE: Frontal and lateral views the chest Comparisons: None FINDINGS: The cardiomediastinal silhouette and pulmonary vessels are within normal limits. The lung and pleural spaces are clear. IMPRESSION: No acute cardiopulmonary process. Electronically signed by: Alize Amos MD (05/25/2019 9:04 PM) [id number] DICTATED and SIGNED BY: ALIZE AMOS MD DATE: 05/25/192103 [facility] [address] [place], [place] [id number] IMAGING REPORT Signed PATIENT: ROLAND HWANG ACCOUNT: [id number] : 1985 LOCATION: ER AGE: 34 SEX: F EXAM STATUS: REG ER ORD. PHYSICIAN: ZENAIDA CUNNINGHAM APRN REASON: left sided pain PROCEDURE: KUB Exam: Abdomen one view INDICATION: Left-sided pain TECHNIQUE: Frontal view of the abdomen Comparisons: None FINDINGS: Large amount stool noted within the colon. Nonobstructive bowel gas pattern. IUD noted within the pelvis. No suspicious masses or calcifications. Visualized osseous structures are unremarkable. IMPRESSION: Large amount stool within the colon. Nonobstructive bowel gas pattern. Electronically signed by: Alize Amos MD (05/25/2019 10:57 PM) [id number] DICTATED and SIGNED BY: ALIZE AMOS MD DATE: 05/25/19 2257 Course & Med Decision Making Course & Med Decision Making Pertinent Labs and Imaging studies reviewed. (See chart for details) Tenderness over left ribs and left upper quadrant with palpation. No crepitus. Lungs are clear to auscultation all lobes. Vital signs within normal limits. Speaks in full clear sentences. Skin pink warm and dry. Ambulatory with a steady gait. States she does have some nausea. Denies chest pain, cough, headache, dizziness, loc, vomiting, diarrhea, fevers, numbness or tingling, visual changes. Patient states that Fentanyl doesnt help her pain and is asking for more pain mediations. Blood work is unremarkable. Urinalysis is contaminated. KUB shows a large amount of stool in the abdomen. I did get the CT abdomen pelvis that was done with contrast from [facility] yesterday and It showed no acute findings. [] Dragon Disclaimer Dragon Disclaimer This electronic medical record was generated, in whole or in part, using a voice recognition dictation system. Departure Departure Impression: Primary Impression: Abdominal pain Additional Impression: Constipation Disposition: 01 HOME, SELF-CARE Condition: STABLE Referrals: ANY PEREZ MD (PCP) LUISA OH MD Patient Instructions: Abdominal Pain (Nonspecific), Constipation, Adult Additional Instructions: Follow up with your doctor. Use tylenol or heating pad for pain. Scripts Sennosides/Docusate Sodium (Senna-Docusate Sodium Tablet) 1 Each Tablet 1 TAB PO BID for 20 Days, #40 TAB 0 Refills Prov: ZENAIDA CUNNINGHAM APRN 05/25/19 Problem Qualifiers Primary Impression: Abdominal pain Abdominal location: epigastric Qualified Codes: R10.13 - Epigastric pain Additional Impression: Constipation Constipation type: unspecified constipation type Qualified Codes: K59.00 - Constipation, unspecified ZENAIDA CUNNINGHAM APRN May 25, 2019 20:44
[2019-05-25 21:00] LABS: BILIRUBIN,URINE NEGATIVE (NEG); CLARITY,URINE CLOUDY; COLOR,URINE AMBER; NITRITE,URINE NEGATIVE (NEG); PH,URINE 5.5; PROTEIN,URINE 30 mg/dL (NEG-TRACE)
[2019-05-25 21:07] LABS: BACTERIA,URINE MANY /HPF (0-FEW); RBC,URINE TNTC /HPF (0-2); SQUAMOUS EPITHELIAL CELL,UR MANY /LPF
--- NOTE | 2019-05-25 21:07 | RAD ---
Exam: Chest 2 views INDICATION: Left rib pain TECHNIQUE: Frontal and lateral views the chest Comparisons: None FINDINGS: The cardiomediastinal silhouette and pulmonary vessels are within normal limits. The lung and pleural spaces are clear. IMPRESSION: No acute cardiopulmonary process. Electronically signed by: Alize Jimenez MD (05/25/2019 9:04 PM) [id number]
[2019-05-25 21:23] LABS: BASO % 1 % (0-3); EOS # 0.3 x10^3/uL (0.0-0.7); EOS % 5 % (0-3); HEMOGLOBIN 13.3 g/dL (12.0-15.5); LYMPH # 2.3 x10^3/uL (1.0-4.8); LYMPH % 39 % (24-48); MEAN CORPUSCULAR HEMOGLOBIN 30 pg (25-35); MEAN CORPUSCULAR HGB CONC 33 g/dL (31-37); MEAN CORPUSCULAR VOLUME 90 fL (79-100); MONO # 0.3 x10^3/uL (0.0-1.1); MONO % 6 % (0-9); NEUT # 2.9 x10^3/uL (1.8-7.7); NEUT % 50 % (31-73); PLATELET COUNT 186 x10^3/uL (140-400); RED BLOOD COUNT 4.47 x10^6/uL (3.50-5.40); RED CELL DISTRIBUTION WIDTH 13.3 % (11.5-14.5); WHITE BLOOD COUNT 5.8 x10^3/uL (4.0-11.0)
[2019-05-25 21:32] LABS: CALCIUM 9.2 mg/dL (8.5-10.1); CREATININE 0.7 mg/dL (0.6-1.0); GFR 95.2; POTASSIUM 3.6 mmol/L (3.5-5.1); PROTHROMBIN TIME PATIENT 14.9 SEC (11.7-14.0)
[2019-05-25] MEDS: ONDANSETRON PF 4 MG/2 ML VIAL. IVP ONE (21:34)
[2019-05-25 21:35] LABS: D-DIMER < 0.27 ug/mlFEU (0.00-0.50)
[2019-05-25] MEDS: fentaNYL PF VIAL 100 MCG/2 ML VIAL IVP ONE (21:35)
[2019-05-25 21:38] LABS: ALBUMIN 4.6 g/dL (3.4-5.0); ALBUMIN/GLOBULIN RATIO 1.5 (1.0-1.7); TOTAL BILIRUBIN 0.3 mg/dL (0.2-1.0); TOTAL PROTEIN 7.7 g/dL (6.4-8.2)
[2019-05-25 21:50] LABS: ACETAMIN < 2 mcg/ml (10-30); ETHANOL < 10 mg/dL (0-10); SALIC 7.7 mg/dL (2.8-20.0)
[2019-05-25 21:50] LABS: BARBITURATES NEG (NEG); BENZODIAZEPINES POS (NEG); CANNABINOIDS NEG (NEG); COCAINE NEG (NEG); METHADONE NEG (NEG); OPIATES POS (NEG); PHENCYCLIDINE NEG (NEG)
[2019-05-25 21:51] LABS: AMPHETAMINE/METHAMPHETAMINE NEG (NEG)
[2019-05-25] MEDS ORDERED: fentaNYL PF VIAL 100 MCG/2 ML VIAL IVP ONE (22:00)
[2019-05-25] MEDS: MORPHINE SULFATE 2 MG/ML VIAL. IV ONE (22:19)
--- NOTE | 2019-05-25 23:00 | RAD ---
Exam: Abdomen one view INDICATION: Left-sided pain TECHNIQUE: Frontal view of the abdomen Comparisons: None FINDINGS: Large amount stool noted within the colon. Nonobstructive bowel gas pattern. IUD noted within the pelvis. No suspicious masses or calcifications. Visualized osseous structures are unremarkable. IMPRESSION: Large amount stool within the colon. Nonobstructive bowel gas pattern. Electronically signed by: Alize Jimenez MD (05/25/2019 10:57 PM) [id number]
[2019-05-25 23:09] VITALS: BP 96/55
[2019-05-25] MEDS ORDERED: SENN1TAB99 PO (23:10)
--- NOTE | 2019-05-26 06:09 | EKG ---
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
== END 2019-05-25 23:26 | disposition home or self-care (01) ==
LOC: ER 18:28
DX: K59.00 Constipation, unspecified (principal); R06.02 Shortness of breath; R07.81 Pleurodynia; F31.9 Bipolar disorder, unspecified; F41.9 Anxiety disorder, unspecified; F17.200 Nicotine dependence, unspecified, uncomplicated; Z95.1 Presence of aortocoronary bypass graft
CPT/HCPCS: 36415; 71046; 74018; 80053; 80307; 80329; 81001; 81025; 83690; 84484; 85025; 85379; 85610; 87086; 93005; 96374; 96375; 99285; G0480; J2270; J2405; J3010

== ENCOUNTER 2019-06-29 22:40 | Emergency (ER) | payer OTHER ==
[~2019-06-29] VITALS: Ht 165.1 cm; Wt 59.0 kg
[~2019-06-29 22:40] MED LIST changes: +SENN1TAB99 PO
--- NOTE | 2019-06-29 23:36 | PHYS DOC ---
Past Medical History Past Medical History: Anemia, Anxiety, Bipolar, Depression, Other Additional Past Medical Histor: CHRONIC STOMACH ULCER Past Surgical History: , Gastric Bypass, Tonsillectomy Additional Past Surgical Histo: PEG TUBE REMOVAL Smoking Status: Current Every Day Smoker Alcohol Use: None Drug Use: None General Adult EDM: Chief Complaint: ABDOMINAL PAIN HPI: HPI: Patient is a 34 year old female who presents with complaint of abdominal pain for the last couple of days. Patient indicates that she has been having nausea and vomiting and pain. She states that the pain was initially in the left upper abdomen but has spread more diffusely at this time. She rates pain to be an 8 out of 10. She states that she is always nauseated and has dysphagia and so was on a liquid diet. She denies any chest pain or shortness of breath. She denies any fever. She states that her last bowel movement was 2 days ago. She does admit to a history of constipation. Patient states the pain is worsened with movement.[] Review of Systems: Review of Systems: Constitutional: Denies fever or chills. [] Respiratory: Denies cough or shortness of breath. [] Cardiovascular: Denies chest pain or edema. [] GI: Complains of abdominal pain with vomiting. Denies diarrhea. [] Integument: Denies rash. [] Neurologic: Denies headache, focal weakness or sensory changes. [] A full 10 point review of systems has been reviewed and is otherwise negative. Heart Score: Risk Factors: Risk Factors: DM, Current or recent (<one month) smoker, HTN, HLP, family history of CAD, obesity. Risk Scores: Score 0 - 3: 2.5% MACE over next 6 weeks - Discharge Home Score 4 - 6: 20.3% MACE over next 6 weeks - Admit for Clinical Observation Score 7 - 10: 72.7% MACE over next 6 weeks - Early Invasive Strategies Allergies: Allergies: Allergies Coded Allergies Type Severity Reaction Last Updated Verified No Known Drug Allergies 01/23/16 No Physical Exam: PE: Constitutional: Well developed, well nourished, no acute distress, non-toxic appearance. [] HENT: Normocephalic, atraumatic, bilateral external ears normal, oropharynx moist, no oral exudates, nose normal. [] Eyes: PERRLA, EOMI, conjunctiva normal, no discharge. [] Neck: Normal range of motion, no tenderness, supple, no stridor. [] Cardiovascular: Regular rate and rhythm[] Lungs & Thorax: Bilateral breath sounds clear to auscultation [] Abdomen: Bowel sounds normal, soft, with diffuse tenderness. [] Skin: Warm, dry, no erythema, no rash. [] Extremities: No tenderness, no cyanosis, no clubbing, ROM intact. [] Neurologic: Alert and oriented X 3, no focal deficits noted. [] EKG: EKG: [] Radiology/Procedures: Radiology/Procedures: [] Impression: PROCEDURE: CT ABD PELV W/ IV CONTRST ONLY EXAM: CT ABDOMEN/PELVIS WITH CONTRAST. HISTORY: Abdominal pain. TECHNIQUE: Computed tomography of the abdomen and pelvis was performed after the intravenous administration of iodinated contrast. One or more of the following individualized dose reduction techniques were utilized for this examination: 1. Automated exposure control. 2. Adjustment of the mA and/or kV according to patient size. 3. Use of iterative reconstruction technique. COMPARISON: 03/20/2019. FINDINGS: Lung windows through the visualized portions of the bases reveal a focal groundglass infiltrate in the left lower lobe measuring 2.9 x 1.5 cm. Bone windows reveal no suspicious lesions. There are enhancing follicles in the left ovary measure up to 3.4 x 3.0 cm. An intrauterine device is in place. There is a small amount of free pelvic fluid. The appendix is not inflamed. There is no small bowel obstruction. There are changes of gastric bypass procedure. The liver, gallbladder, adrenal glands, spleen, pancreas and kidneys are unremarkable. There are no pathologically enlarged lymph nodes. IMPRESSION: 1. The left ovary is enlarged by multiple follicles measuring up to 3.4 cm. There is a small amount of free pelvic fluid without clear hemorrhage. This is most likely physiologic, but sonography could further evaluate if there is persistent concern. 2. Focal groundglass infiltrate in the left lower lobe. Correlate clinically for causes of atypical pneumonia. Electronically signed by: Segundo Grayson MD (06/30/2019 1:34 AM) [facility] Course & Med Decision Making: Course & Med Decision Making Pertinent Labs and Imaging studies reviewed. (See chart for details) [] Dragon Disclaimer: Dragon Disclaimer: This electronic medical record was generated, in whole or in part, using a voice recognition dictation system. Departure Departure Impression: Primary Impression: Ovarian cyst Qualified Codes: N83.209 - Unspecified ovarian cyst, unspecified side Disposition: 01 HOME, SELF-CARE Condition: STABLE Referrals: ANY PEREZ MD (PCP) Patient Instructions: Ovarian Cyst Scripts Ondansetron (ONDANSETRON ODT) 4 Mg Tab.rapdis 1 TAB PO PRN Q6-8HRS PRN for NAUSEA, #15 TAB Prov: JAYJAY GREEN Jr. DO 06/30/19 Hydrocodone/Apap 5-325 (NORCO 5-325 TABLET) 1 Each Tablet 1-2 EACH PO PRN Q6HRS PRN for PAIN, #12 as needed for pain Prov: JAYJAY GREEN Jr. DO 06/30/19 JAYJAY GREEN Jr. DO Jun 29, 2019 23:36
[2019-06-29] MEDS ORDERED: IV NORMAL SALINE 1000ML BAG 1,000 ML IV SCH (23:45)
[2019-06-29] MEDS ORDERED: ONDANSETRON PF 4 MG/2 ML VIAL. IVP ONE (23:45)
[2019-06-29 23:52] LABS: BILIRUBIN,URINE NEGATIVE (NEG); CLARITY,URINE CLEAR; COLOR,URINE YELLOW; NITRITE,URINE NEGATIVE (NEG); PROTEIN,URINE NEGATIVE (NEG-TRACE)
[2019-06-29 23:58] LABS: BASO % 0 % (0-3); EOS # 0.4 x10^3/uL (0.0-0.7); EOS % 7 % (0-3); HEMATOCRIT 40.5 % (36.0-47.0); HEMOGLOBIN 13.4 g/dL (12.0-15.5); LYMPH # 2.3 x10^3/uL (1.0-4.8); LYMPH % 36 % (24-48); MEAN CORPUSCULAR HEMOGLOBIN 30 pg (25-35); MEAN CORPUSCULAR HGB CONC 33 g/dL (31-37); MEAN CORPUSCULAR VOLUME 90 fL (79-100); MONO # 0.4 x10^3/uL (0.0-1.1); MONO % 6 % (0-9); NEUT # 3.2 x10^3/uL (1.8-7.7); NEUT % 52 % (31-73); PLATELET COUNT 270 x10^3/uL (140-400); RED BLOOD COUNT 4.52 x10^6/uL (3.50-5.40); RED CELL DISTRIBUTION WIDTH 12.9 % (11.5-14.5); WHITE BLOOD COUNT 6.3 x10^3/uL (4.0-11.0)
[2019-06-30 00:02] LABS: BARBITURATES NEG (NEG); BENZODIAZEPINES POS (NEG); CANNABINOIDS NEG (NEG); COCAINE NEG (NEG); METHADONE NEG (NEG); OPIATES NEG (NEG); PHENCYCLIDINE NEG (NEG)
[2019-06-30 00:02] LABS: PREG TEST PT QUAL NEGATIVE (NEG)
[2019-06-30 00:03] LABS: AMPHETAMINE/METHAMPHETAMINE NEG (NEG)
[2019-06-30 00:04] LABS: BACTERIA,URINE FEW /HPF (0-FEW); RBC,URINE 0 /HPF (0-2); SQUAMOUS EPITHELIAL CELL,UR FEW /LPF; WBC,URINE 0 /HPF (0-4)
[2019-06-30 00:05] LABS: CALCIUM 9.1 mg/dL (8.5-10.1); CREATININE 0.8 mg/dL (0.6-1.0); GFR 81.6; POTASSIUM 3.5 mmol/L (3.5-5.1)
[2019-06-30] MEDS: MORPHINE SULFATE 2 MG/ML VIAL. IV/SQ PRN ×2 (00:06→01:19)
[2019-06-30 00:10] LABS: ALBUMIN/GLOBULIN RATIO 1.1 (1.0-1.7); TOTAL BILIRUBIN 0.2 mg/dL (0.2-1.0); TOTAL PROTEIN 7.7 g/dL (6.4-8.2)
[2019-06-30] MEDS ORDERED: IOHEXOL 300 MG/ML 100ML VIAL. IV ONE (00:30)
[2019-06-30] MEDS ORDERED: CONTRAST GIVEN. MC PRN (00:45)
--- NOTE | 2019-06-30 01:37 | RAD ---
EXAM: CT ABDOMEN/PELVIS WITH CONTRAST. HISTORY: Abdominal pain. TECHNIQUE: Computed tomography of the abdomen and pelvis was performed after the intravenous administration of iodinated contrast. One or more of the following individualized dose reduction techniques were utilized for this examination: 1. Automated exposure control. 2. Adjustment of the mA and/or kV according to patient size. 3. Use of iterative reconstruction technique. COMPARISON: 03/20/2019. FINDINGS: Lung windows through the visualized portions of the bases reveal a focal groundglass infiltrate in the left lower lobe measuring 2.9 x 1.5 cm. Bone windows reveal no suspicious lesions. There are enhancing follicles in the left ovary measure up to 3.4 x 3.0 cm. An intrauterine device is in place. There is a small amount of free pelvic fluid. The appendix is not inflamed. There is no small bowel obstruction. There are changes of gastric bypass procedure. The liver, gallbladder, adrenal glands, spleen, pancreas and kidneys are unremarkable. There are no pathologically enlarged lymph nodes. IMPRESSION: 1. The left ovary is enlarged by multiple follicles measuring up to 3.4 cm. There is a small amount of free pelvic fluid without clear hemorrhage. This is most likely physiologic, but sonography could further evaluate if there is persistent concern. 2. Focal groundglass infiltrate in the left lower lobe. Correlate clinically for causes of atypical pneumonia. Electronically signed by: Segundo Grayson MD (06/30/2019 1:34 AM) [facility]
[2019-06-30] MEDS ORDERED: ONDA4TAB12 PO (01:45)
[2019-06-30] MEDS ORDERED: HYDR-3164 PO (01:45)
[2019-06-30 02:47] VITALS: BP 109/68
== END 2019-06-30 02:50 | disposition home or self-care (01) ==
LOC: ER 22:40
DX: N83.209 Unspecified ovarian cyst, unspecified side (principal); R11.2 Nausea with vomiting, unspecified; R10.12 Left upper quadrant pain; R13.10 Dysphagia, unspecified; F41.9 Anxiety disorder, unspecified; F32.9 Major depressive disorder, single episode, unspecified; F17.200 Nicotine dependence, unspecified, uncomplicated; Z90.89 Acquired absence of other organs; Z98.890 Other specified postprocedural states
CPT/HCPCS: 36415; 74177; 80053; 80307; 81001; 83690; 84703; 85025; 96361; 96374; 96375; 96376; 99285; J2270; J2405; J7030; Q9967

== ENCOUNTER 2019-07-10 16:34 | Emergency (ER) | payer OTHER ==
[~2019-07-10] VITALS: Ht 165.1 cm; Wt 60.0 kg
[~2019-07-10 16:34] MED LIST changes: +ONDA4TAB12 PO
[2019-07-10] MEDS ORDERED: IV NORMAL SALINE 1000ML BAG 1,000 ML IV SCH (17:20)
[2019-07-10] MEDS ORDERED: ONDANSETRON PF 4 MG/2 ML VIAL. IVP ONE (17:30)
[2019-07-10 17:34] LABS: BASO % 1 % (0-3); EOS # 0.2 x10^3/uL (0.0-0.7); EOS % 4 % (0-3); HEMATOCRIT 36.4 % (36.0-47.0); HEMOGLOBIN 12.2 g/dL (12.0-15.5); LYMPH # 1.4 x10^3/uL (1.0-4.8); LYMPH % 27 % (24-48); MEAN CORPUSCULAR HEMOGLOBIN 30 pg (25-35); MEAN CORPUSCULAR HGB CONC 33 g/dL (31-37); MEAN CORPUSCULAR VOLUME 90 fL (79-100); MONO # 0.4 x10^3/uL (0.0-1.1); MONO % 7 % (0-9); NEUT # 3.1 x10^3/uL (1.8-7.7); NEUT % 62 % (31-73); PLATELET COUNT 217 x10^3/uL (140-400); RED BLOOD COUNT 4.05 x10^6/uL (3.50-5.40); WHITE BLOOD COUNT 5.1 x10^3/uL (4.0-11.0)
[2019-07-10 17:40] LABS: CALCIUM 8.5 mg/dL (8.5-10.1); CREATININE 0.9 mg/dL (0.6-1.0); GFR 71.3
[2019-07-10 17:41] LABS: POTASSIUM 3.8 mmol/L (3.5-5.1)
[2019-07-10 17:42] LABS: PROTHROMBIN TIME PATIENT 15.1 SEC (11.7-14.0)
[2019-07-10] MEDS ORDERED: MORPHINE SULFATE 4 MG/ML VIAL. IV ONE (17:45)
[2019-07-10 17:48] LABS: ALBUMIN 3.8 g/dL (3.4-5.0); ALBUMIN/GLOBULIN RATIO 1.2 (1.0-1.7); TOTAL BILIRUBIN 0.3 mg/dL (0.2-1.0)
--- NOTE | 2019-07-10 18:00 | PHYS DOC ---
Past Medical History Past Medical History: Anemia, Anxiety, Bipolar, Depression, Other Additional Past Medical Histor: CHRONIC STOMACH ULCER (CHIVO CARPENTER MD) Past Surgical History: , Gastric Bypass, Tonsillectomy Additional Past Surgical Histo: PEG TUBE REMOVAL,BARIATRIC SURGERY 2017 (CHIVO CARPENTER MD) Smoking Status: Former Smoker Alcohol Use: None Drug Use: None (CHIVO CARPENTER MD) General Adult EDM: Chief Complaint: SHORTNESS OF BREATH HPI: HPI: Patient is a 34 year old female with history of anxiety, depression, bipolar disorder, anemia, chronic stomach ulcer, frequent emergency room visit who presents with complaining of bilateral back pain. Patient complaining of constant bilateral upper back pain for the last 4 days as a tightness pain without radiation, focal neuro deficit, fever, injury. Patient states she has chills. Patient states she had one episode of nausea yesterday. Patient states she had a negative COVID-19 test recently because she had CT abdomen pelvis with groundglass pattern in her chest. Patient denies diarrhea, urinary symptoms, , history of DVT and PE. (CHIVO CARPENTER MD) Review of Systems: Review of Systems: Constitutional: Denies fever or chills. [] Eyes: Denies change in visual acuity. [] HENT: Denies nasal congestion or sore throat. [] Respiratory: Denies cough or shortness of breath. [] Cardiovascular: Denies chest pain or edema. [] GI: Denies abdominal pain, vomiting, bloody stools or diarrhea. [] : Denies dysuria. [] Musculoskeletal: Reports back pain Integument: Denies rash. [] Neurologic: Denies headache, focal weakness or sensory changes. [] Endocrine: Denies polyuria or polydipsia. [] Lymphatic: Denies swollen glands. [] Psychiatric: Denies depression or anxiety. [] (CHIVO CARPENTER MD) Heart Score: Risk Factors: Risk Factors: DM, Current or recent (<one month) smoker, HTN, HLP, family history of CAD, obesity. Risk Scores: Score 0 - 3: 2.5% MACE over next 6 weeks - Discharge Home Score 4 - 6: 20.3% MACE over next 6 weeks - Admit for Clinical Observation Score 7 - 10: 72.7% MACE over next 6 weeks - Early Invasive Strategies (CHIVO CARPENTER MD) Current Medications: Current Medications Medications (Trade) Dose Ordered Sig/Yaniv Start Time Stop Time Status Last Admin Dose Admin Morphine Sulfate (Morphine Sulfate) 4 mg 1X ONCE 07/10/19 17:45 07/10/19 17:46 DC 07/10/19 17:45 4 MG Ondansetron HCl (Zofran) 4 mg 1X ONCE 07/10/19 17:30 07/10/19 17:31 DC 07/10/19 17:44 4 MG Sodium Chloride 1,000 ml @ 1,000 mls/hr Q1H 07/10/19 17:20 07/10/19 18:19 07/10/19 17:44 1,000 MLS/HR (CHIVO CARPENTER MD) Allergies: Allergies: Allergies Coded Allergies Type Severity Reaction Last Updated Verified No Known Drug Allergies 01/23/16 No (CHIVO CARPENTER MD) Physical Exam: PE: Constitutional: Well developed, well nourished, milde distress, non-toxic appearance. [] HENT: Normocephalic, atraumatic, oropharynx moist. Eyes: PERRLA, EOMI, conjunctiva normal, no discharge. [] Neck: Normal range of motion, no tenderness, supple, no stridor. [] Cardiovascular:Heart rate regular rhythm, no murmur [] Lungs & Thorax: Bilateral breath sounds clear to auscultation [] Abdomen: Bowel sounds normal, soft, no tenderness, no masses, no pulsatile masses. [] Skin: Warm, dry, no erythema, no rash. [] Back: No tenderness, no CVA tenderness. [] Extremities: No tenderness, no cyanosis, no clubbing, ROM intact, no edema. [] Neurologic: Alert and oriented X 3, normal motor function, normal sensory function, no focal deficits noted. [] Psychologic: Affect normal, judgement normal, mood normal. [] (CHIVO CARPENTER MD) Current Patient Data: Labs: Laboratory Tests Test 07/10/19 17:00 White Blood Count 5.1 x10^3/uL (4.0-11.0) Red Blood Count 4.05 x10^6/uL (3.50-5.40) Hemoglobin 12.2 g/dL (12.0-15.5) Hematocrit 36.4 % (36.0-47.0) Mean Corpuscular Volume 90 fL (79-100) Mean Corpuscular Hemoglobin 30 pg (25-35) Mean Corpuscular Hemoglobin Concent 33 g/dL (31-37) Red Cell Distribution Width 13.0 % (11.5-14.5) Platelet Count 217 x10^3/uL (140-400) Neutrophils (%) (Auto) 62 % (31-73) Lymphocytes (%) (Auto) 27 % (24-48) Monocytes (%) (Auto) 7 % (0-9) Eosinophils (%) (Auto) 4 % (0-3) H Basophils (%) (Auto) 1 % (0-3) Neutrophils # (Auto) 3.1 x10^3/uL (1.8-7.7) Lymphocytes # (Auto) 1.4 x10^3/uL (1.0-4.8) Monocytes # (Auto) 0.4 x10^3/uL (0.0-1.1) Eosinophils # (Auto) 0.2 x10^3/uL (0.0-0.7) Basophils # (Auto) 0.0 x10^3/uL (0.0-0.2) Prothrombin Time 15.1 SEC (11.7-14.0) H Prothrombin Time INR 1.2 (0.8-1.1) H Sodium Level 139 mmol/L (136-145) Potassium Level 3.8 mmol/L (3.5-5.1) Chloride Level 106 mmol/L (98-107) Carbon Dioxide Level 31 mmol/L (21-32) Anion Gap 2 (6-14) L Blood Urea Nitrogen 9 mg/dL (7-20) Creatinine 0.9 mg/dL (0.6-1.0) Estimated GFR (Cockcroft-Gault) 71.3 BUN/Creatinine Ratio 10 (6-20) Glucose Level 72 mg/dL (70-99) Lactic Acid Level 0.8 mmol/L (0.4-2.0) Calcium Level 8.5 mg/dL (8.5-10.1) Magnesium Level 2.0 mg/dL (1.8-2.4) Total Bilirubin 0.3 mg/dL (0.2-1.0) Aspartate Amino Transferase (AST) 22 U/L (15-37) Alanine Aminotransferase (ALT) 31 U/L (14-59) Alkaline Phosphatase 67 U/L (46-116) Creatine Kinase 52 U/L (26-192) Troponin I Quantitative < 0.017 ng/mL (0.000-0.055) Total Protein 7.0 g/dL (6.4-8.2) Albumin 3.8 g/dL (3.4-5.0) Albumin/Globulin Ratio 1.2 (1.0-1.7) Lipase 201 U/L (73-393) Laboratory Tests 07/10/19 17:00 Laboratory Tests 07/10/19 17:00 Vital Signs: Vital Signs Date Time Temp Pulse Resp B/P (MAP) Pulse Ox O2 Delivery O2 Flow Rate FiO2 07/10/19 16:40 99.1 85 20 100/55 (70) 98 Room Air 99.1 (CHIVO CARPENTER MD) EKG: EKG: [] (CHIVO CARPENTER MD) Radiology/Procedures: Radiology/Procedures: [] (CHIVO CARPENTER MD) Impression: PROCEDURE: PORTABLE CHEST 1V Exam: Chest one view INDICATION: Back pain and fever TECHNIQUE: Frontal view of the chest Comparisons: 05/25/2019 FINDINGS: The cardiomediastinal silhouette and pulmonary vessels are within normal limits. The lung and pleural spaces are clear. IMPRESSION: No acute cardiopulmonary process. Electronically signed by: Alize Jimenez MD (07/10/2019 6:17 PM) [id number] (JAYJAY GREEN Jr. DO) Course & Med Decision Making: Course & Med Decision Making Pertinent Labs and Imaging studies is pending. Sign out given to for further evaluation and final disposition. Discussed current findings and plan with patient and family, who acknowledge understanding and agreement. (CHIVO CARPENTER MD) Dragon Disclaimer: Dragon Disclaimer: This electronic medical record was generated, in whole or in part, using a voice recognition dictation system. (CHIVO CARPENTER MD) Departure Departure Impression: Primary Impression: Back pain Qualified Codes: M54.5 - Low back pain Disposition: HOME, SELF-CARE Condition: STABLE Referrals: ANA,ANY L MD (PCP) Patient Instructions: Back Pain, Adult Scripts Orphenadrine Citrate (ORPHENADRINE CITRATE) 100 Mg Tablet.er 1 TAB PO BID PRN for MUSCLE SPASMS, #14 TAB Prov: JAYJAY GREEN Jr. DO 07/10/19 Diclofenac Sodium (DICLOFENAC SODIUM) 50 Mg Tablet.dr 1 TAB PO BID PRN for PAIN, #20 TAB Prov: JAYJAY GRENE Jr. DO 07/10/19 CHIVO CARPENTER MD Jul 10, 2019 18:00 JAYJAY GREEN Jr. DO Jul 10, 2019 18:29
[2019-07-10 18:07] LABS: BILIRUBIN,URINE NEGATIVE (NEG); CLARITY,URINE CLEAR; COLOR,URINE YELLOW; NITRITE,URINE NEGATIVE (NEG); PH,URINE 5.5 (<5.0-8.0); PROTEIN,URINE NEGATIVE (NEG-TRACE); UROBILINOGEN,URINE 0.2 mg/dL (0.2 mg/dL)
[2019-07-10 18:09] LABS: SQUAMOUS EPITHELIAL CELL,UR FEW /LPF
[2019-07-10 18:10] LABS: BACTERIA,URINE 0 /HPF (0-FEW); RBC,URINE 0 /HPF (0-2); WBC,URINE 0 /HPF (0-4)
[2019-07-10 18:13] LABS: BARBITURATES NEG (NEG); BENZODIAZEPINES POS (NEG); CANNABINOIDS NEG (NEG); COCAINE NEG (NEG); METHADONE NEG (NEG); OPIATES NEG (NEG); PHENCYCLIDINE NEG (NEG)
[2019-07-10 18:21] LABS: AMPHETAMINE/METHAMPHETAMINE NEG (NEG)
--- NOTE | 2019-07-10 18:21 | RAD ---
Exam: Chest one view INDICATION: Back pain and fever TECHNIQUE: Frontal view of the chest Comparisons: 05/25/2019 FINDINGS: The cardiomediastinal silhouette and pulmonary vessels are within normal limits. The lung and pleural spaces are clear. IMPRESSION: No acute cardiopulmonary process. Electronically signed by: Alize Jimenez MD (07/10/2019 6:17 PM) [id number]
[2019-07-10 18:23] LABS: INFLUENZA A PATIENT NEGATIVE (NEGATIVE); INFLUENZA B PATIENT NEGATIVE (NEGATIVE)
[2019-07-10] MEDS ORDERED: ORPH100T PO (18:29)
[2019-07-10] MEDS ORDERED: DICL50TA4 PO (18:29)
[2019-07-10 18:43] VITALS: BP 99/59
[2019-07-10] MEDS ORDERED: ORPHENADRINE CITRATE 60 MG/2 ML VIAL. IV ONE (18:45)
[2019-07-10] MEDS ORDERED: KETOROLAC 30 MG/ML VIAL. IVP ONE (18:45)
--- NOTE | 2019-07-10 19:25 | EKG ---
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
== END 2019-07-10 19:30 | disposition home or self-care (01) ==
LOC: ER 16:34
DX: M54.6 Pain in thoracic spine (principal); R07.89 Other chest pain; R11.0 Nausea; F31.9 Bipolar disorder, unspecified; Z87.891 Personal history of nicotine dependence
CPT/HCPCS: 36415; 71045; 80053; 80307; 81001; 81025; 82550; 83605; 83690; 83735; 84484; 85025; 85379; 85610; 87040; 87804; 93005; 96374; 96375; 99285; J2270; J2360; J2405; J7030

== ENCOUNTER 2019-10-20 05:31 | Observation (INO) | payer OTHER ==
[~2019-10-20] VITALS: Ht 165.1 cm; Wt 59.0 kg
[~2019-10-20 05:31] MED LIST changes: +DICL50TA4 PO; +ORPH100T PO
[2019-10-20 06:04] LABS: BASO % 0 % (0-3); EOS % 1 % (0-3); HEMATOCRIT 31.2 % (36.0-47.0); HEMOGLOBIN 10.3 g/dL (12.0-15.5); LYMPH # 1.4 x10^3/uL (1.0-4.8); LYMPH % 19 % (24-48); MEAN CORPUSCULAR HEMOGLOBIN 28 pg (25-35); MEAN CORPUSCULAR HGB CONC 33 g/dL (31-37); MEAN CORPUSCULAR VOLUME 86 fL (79-100); MONO # 0.5 x10^3/uL (0.0-1.1); MONO % 6 % (0-9); NEUT # 5.5 x10^3/uL (1.8-7.7); NEUT % 74 % (31-73); PLATELET COUNT 259 x10^3/uL (140-400); RED BLOOD COUNT 3.62 x10^6/uL (3.50-5.40); RED CELL DISTRIBUTION WIDTH 13.2 % (11.5-14.5); WHITE BLOOD COUNT 7.4 x10^3/uL (4.0-11.0)
[2019-10-20 06:12] LABS: ALBUMIN 3.4 g/dL (3.4-5.0); ALBUMIN/GLOBULIN RATIO 4.3 (1.0-1.7); CALCIUM 8.5 mg/dL (8.5-10.1); CREATININE 0.9 mg/dL (0.6-1.0); GFR 71.3; TOTAL BILIRUBIN 0.2 mg/dL (0.2-1.0); TOTAL PROTEIN 4.2 g/dL (6.4-8.2)
[2019-10-20 06:17] LABS: POTASSIUM 2.6 mmol/L (3.5-5.1)
[2019-10-20 06:36] LABS: BILIRUBIN,URINE NEGATIVE (NEG); CLARITY,URINE CLOUDY; COLOR,URINE YELLOW; NITRITE,URINE NEGATIVE (NEG); PROTEIN,URINE NEGATIVE (NEG-TRACE)
--- NOTE | 2019-10-20 06:42 | RAD ---
Chest AP portable at 0623: Reason for examination: Fever. Comparison is made to previous study dated 07/10/2019. The heart size is normal. Mediastinum is unremarkable. Lung tavarez are clear. No acute bony abnormalities are seen. Impression: No acute cardiopulmonary disease. Electronically signed by: Denae Castaneda MD (10/20/2019 6:39 AM) [id number]
[2019-10-20] MEDS ORDERED: POTASSIUM CHLORIDE 20 MEQ TABLET.ER. PO ONE (06:45)
[2019-10-20] MEDS ORDERED: MAGNESIUM SULFATE 2GM 50 ML IV ONE (06:45)
[2019-10-20 06:49] LABS: BARBITURATES NEG (NEG); BENZODIAZEPINES POS (NEG); CANNABINOIDS NEG (NEG); COCAINE NEG (NEG); METHADONE NEG (NEG); OPIATES NEG (NEG); PHENCYCLIDINE NEG (NEG)
[2019-10-20 06:50] LABS: AMPHETAMINE/METHAMPHETAMINE NEG (NEG)
[2019-10-20 06:55] LABS: BACTERIA,URINE MANY /HPF (0-FEW); RBC,URINE >40 /HPF (0-2); SQUAMOUS EPITHELIAL CELL,UR MANY /LPF
[2019-10-20] MEDS ORDERED: POTASSIUM CHLORIDE 20MEQ 100 ML IV ONE (07:00)
--- NOTE | 2019-10-20 07:05 | RAD ---
CT head without contrast: Reason for examination: Altered mental status. Facial contusion. Comparison is made to previous study dated 03/20/2019. Axial images were obtained through the brain. No contrast was administered. Reconstruction was performed in coronal plane. Exposure: One or more of the following individualized dose reduction techniques were utilized for this examination: 1. Automated exposure control 2. Adjustment of the mA and/or kV according to patient size 3. Use of iterative reconstruction technique. Ventricular systems are symmetric and not dilated. No midline shift is seen. There is no evidence of intracranial hemorrhage, infarct, mass or edema. No abnormalities are seen at the orbits. The paranasal sinuses and mastoid air cells are clear. No acute skull abnormality is seen. IMPRESSION: No acute intracranial abnormality evident. Electronically signed by: Denae Castaneda MD (10/20/2019 7:02 AM) [id number]
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
[2019-10-20] MEDS ORDERED: IV NORMAL SALINE 1000ML BAG 1,000 ML IV ONE (07:45)
[2019-10-20] MEDS ORDERED: cefTRIAXone IV Push 1 GM VIAL. IVP ONE (07:45)
[2019-10-20] MEDS ORDERED: ACETAMINOPHEN 500 MG TABLET PO ONE (07:45)
[2019-10-20] MEDS ORDERED: ONDANSETRON PF 4 MG/2 ML VIAL. IV PRN (09:00)
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
[2019-10-20 10:00] VITALS: BP 111/63
--- NOTE | 2019-10-20 10:51 | PDOC ---
Infectious Disease Note Vital Sign Vital Signs Vital Signs Date Time Temp Pulse Resp B/P (MAP) Pulse Ox O2 Delivery O2 Flow Rate FiO2 10/20/19 05:50 99.9 99 20 132/72 (92) 99 Room Air 99.9 Labs Lab Laboratory Tests Test 10/20/19 05:45 10/20/19 05:55 10/20/19 06:25 10/20/19 06:31 White Blood Count 7.4 x10^3/uL (4.0-11.0) Red Blood Count 3.62 x10^6/uL (3.50-5.40) Hemoglobin 10.3 g/dL (12.0-15.5) Hematocrit 31.2 % (36.0-47.0) Mean Corpuscular Volume 86 fL (79-100) Mean Corpuscular Hemoglobin 28 pg (25-35) Mean Corpuscular Hemoglobin Concent 33 g/dL (31-37) Red Cell Distribution Width 13.2 % (11.5-14.5) Platelet Count 259 x10^3/uL (140-400) Neutrophils (%) (Auto) 74 % (31-73) Lymphocytes (%) (Auto) 19 % (24-48) Monocytes (%) (Auto) 6 % (0-9) Eosinophils (%) (Auto) 1 % (0-3) Basophils (%) (Auto) 0 % (0-3) Neutrophils # (Auto) 5.5 x10^3/uL (1.8-7.7) Lymphocytes # (Auto) 1.4 x10^3/uL (1.0-4.8) Monocytes # (Auto) 0.5 x10^3/uL (0.0-1.1) Eosinophils # (Auto) 0.0 x10^3/uL (0.0-0.7) Basophils # (Auto) 0.0 x10^3/uL (0.0-0.2) Sodium Level 140 mmol/L (136-145) Potassium Level 2.6 mmol/L (3.5-5.1) Chloride Level 102 mmol/L (98-107) Carbon Dioxide Level 31 mmol/L (21-32) Anion Gap 7 (6-14) Blood Urea Nitrogen 15 mg/dL (7-20) Creatinine 0.9 mg/dL (0.6-1.0) Estimated GFR (Cockcroft-Gault) 71.3 BUN/Creatinine Ratio 17 (6-20) Glucose Level 99 mg/dL (70-99) Calcium Level 8.5 mg/dL (8.5-10.1) Total Bilirubin 0.2 mg/dL (0.2-1.0) Aspartate Amino Transf (AST/SGOT) 15 U/L (15-37) Alanine Aminotransferase (ALT/SGPT) 13 U/L (14-59) Alkaline Phosphatase 66 U/L (46-116) Total Protein 4.2 g/dL (6.4-8.2) Albumin 3.4 g/dL (3.4-5.0) Albumin/Globulin Ratio 4.3 (1.0-1.7) Ethyl Alcohol Level < 10 mg/dL (0-10) Lactic Acid Level 1.0 mmol/L (0.4-2.0) Urine Collection Type Unknown Urine Color Yellow Urine Clarity Cloudy Urine pH 6.0 (<5.0-8.0) Urine Specific [place] 1.015 (1.000-1.030) Urine Protein Negative mg/dL (NEG-TRACE) Urine Glucose (UA) Negative mg/dL (NEG) Urine Ketones (Stick) Negative mg/dL (NEG) Urine Blood Large (NEG) Urine Nitrite Negative (NEG) Urine Bilirubin Negative (NEG) Urine Urobilinogen Dipstick 1.0 mg/dL (0.2 mg/dL) Urine Leukocyte Esterase Moderate (NEG) Urine RBC >40 /HPF (0-2) Urine WBC 11-20 /HPF (0-4) Urine Squamous Epithelial Cells Many /LPF Urine Bacteria Many /HPF (0-FEW) Urine Opiates Screen Neg (NEG) Urine Methadone Screen Neg (NEG) Urine Barbiturates Neg (NEG) Urine Phencyclidine Screen Neg (NEG) Urine Amphetamine/Methamphetamine Neg (NEG) Urine Benzodiazepines Screen Pos (NEG) Urine Cocaine Screen Neg (NEG) Urine Cannabinoids Screen Neg (NEG) Urine Ethyl Alcohol Neg (NEG) Bedside Urine HCG, Qualitative Hcg negative (Negative) Test 10/20/19 06:45 Magnesium Level 1.9 mg/dL (1.8-2.4) Objective Assessment Encephalopathy - currently oriented ? UTI vs electrolytes + Benzos UTI - frequency and urgency Fever Electrolyte abnormalities Plan Plan of Care Received Rocephin and currently feeling better would cont F/u labs and cults Electrolytes per primary Thank you # [id number] SPEEDY CASTRO MD Oct 20, 2019 10:51
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
--- NOTE | 2019-10-20 17:51 | EKG ---
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
[2019-10-21] MEDS ORDERED: cefTRIAXone IV Push 1 GM VIAL. IVP SCH (06:00)
--- NOTE | 2019-10-21 10:02 | NUR ---
IP: Attempted to contact pt to give her the COVID results. No answer and voicemail box full.
== END 2019-10-20 09:30 | disposition left against medical advice (07) ==
LOC: ER 05:31 → 6 SOUTH 08:00
PROVIDERS: ADMIT Internal Medicine; ATTEND Internal Medicine
DX: S00.83XA Contusion of other part of head, initial encounter (principal); R41.82 Altered mental status, unspecified; Z20.828 Contact with and (suspected) exposure to other viral communicable diseases; R50.9 Fever, unspecified; E87.6 Hypokalemia; F41.9 Anxiety disorder, unspecified; F31.9 Bipolar disorder, unspecified; D64.9 Anemia, unspecified; Z98.84 Bariatric surgery status; Z98.890 Other specified postprocedural states; Z87.891 Personal history of nicotine dependence; Y08.89XA Assault by other specified means, initial encounter; Y93.89 Activity, other specified; Y92.89 Other specified places as the place of occurrence of the external cause; Y99.8 Other external cause status
CPT/HCPCS: 36415; 70450; 71045; 80053; 80307; 81001; 81025; 83605; 83735; 85025; 87040; 87077; 87086; 93005; 96361; 96365; 96366; 96367; 96375; 99285; G0378; G0480; J0696; J3475; J3480; J7030; U0003; G0379

== ENCOUNTER 2019-11-02 07:12 | Emergency (ER) | payer OTHER ==
[~2019-11-02] VITALS: Ht 167.6 cm; Wt 70.0 kg
[2019-11-02 07:20] VITALS: BP 128/84
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
== END 2019-11-02 08:39 | disposition home or self-care (01) ==
LOC: ER 07:12 → EEVIPCON 07:12 → ER 08:39
DX: S00.83XA Contusion of other part of head, initial encounter (principal); F31.9 Bipolar disorder, unspecified; F41.9 Anxiety disorder, unspecified; Z87.891 Personal history of nicotine dependence; Z98.84 Bariatric surgery status; Z88.4 Allergy status to anesthetic agent; Z88.6 Allergy status to analgesic agent; Y08.89XA Assault by other specified means, initial encounter; Y93.89 Activity, other specified; Y92.89 Other specified places as the place of occurrence of the external cause; Y99.8 Other external cause status
CPT/HCPCS: 70450; 70486; 99285-25